=== PATIENT | female | born 1950 | race Caucasian/White ===

== ENCOUNTER 2020-03-26 07:47 | Outpatient (REF) | payer MEDICARE, SELFPAY ==
[2020-03-26 08:17] LABS: MANUAL DIFF FLAG NO
[2020-03-26 08:18] LABS: Basophils Percent Auto 0.8 % (0-2); Eosinophils Absolute Auto 0.2 X10*3/uL (0.0-0.4); Eosinophils Percent Auto 5.8 % (0-4); Hematocrit 38.4 % (37-47); Hemoglobin 12.6 g/dl (12.0-16.0); Imm Gran Abs Auto 0.01 X10*3/uL (0.00-0.03); Imm Gran Pct Auto 0.3 % (0.0-0.4); Lymphocytes Absolute Auto 1.5 X10*3/uL (1.2-4.9); Lymphocytes Percent Auto 39.9 % (20-40); Mean Corpuscular HGB Conc 32.8 g/dl (31.0-35.0); Mean Corpuscular Volume 88.3 fL (80-98); Mean Platelet Volume 10.3 fL (9.4-12.3); Monocytes Absolute Auto 0.3 X10*3/uL (0.1-1.2); Monocytes Percent Auto 8.7 % (2-11); Neutrophils Absolute Auto 1.7 X10*3/uL (2.0-8.3); Neutrophils Percent Auto 44.5 % (45-73); Platelet Count 228 X10*3/uL (160-400); Red Blood Count 4.35 X10*6/uL (4.20-5.50); Red Cell Distribution Width 12.1 % (11.0-16.0); White Blood Count 3.8 X10*3/uL (4.8-10.8)
[2020-03-26 08:54] LABS: Alanine Aminotransferase 28 U/L (0-31); Albumin Level 4.2 g/dL (3.5-5.0); Alkaline Phosphatase 54 U/L (39-117); Anion Gap 10 (12-20); Aspartate Amino Transferase 24 U/L (5-31); Bilirubin Total 0.2 mg/dL (0.0-1.0); Blood Urea Nitrogen 10 mg/dL (9-16); Calcium 8.6 mg/dL (8.4-10.2); Carbon Dioxide 28 mmol/L (22-29); Chloride 107 mmol/L (96-108); Cholesterol 174 mg/dL; Estimated Glomerular Filt Rate > 60; Glucose Random 84 mg/dL (60-115); HDL Cholesterol 60 mg/dL; LDL Cholesterol Calculated 101 mg/dl; Potassium 4.2 mmol/l (3.3-5.1); Sodium 141 mmol/L (135-145); Total Protein 6.1 g/dL (6.5-8.0); Triglycerides 68 mg/dL
[2020-03-26 09:35] LABS: Thyroid Stimulating Hormone 0.93 mIU/mL (0.32-4.0); Vitamin D 25-OH Total 53.2 ng/mL (>30)
[2020-03-26 10:16] LABS: T4 Thyroxine 8.1 ug/dL (4.5-12.0)
[2020-03-26 11:23] LABS: Folate > 20.0 ng/mL (> or = 4.0); Vitamin B12 1091 pg/mL (200-900)
== END 2020-03-26 07:48 | disposition home or self-care (01) ==
LOC: HO.LAB 07:47
PROVIDERS: Visit Provider Internal Medicine
DX: E78.00 Pure hypercholesterolemia, unspecified (principal); M81.0 Age-related osteoporosis without current pathological fracture; R31.9 Hematuria, unspecified; E03.9 Hypothyroidism, unspecified; N13.5 Crossing vessel and stricture of ureter without hydronephrosis
CPT/HCPCS: 36415; 80053; 80061; 82306; 82607; 82746; 84436; 84443; 85025

== ENCOUNTER 2020-07-16 08:10 | Outpatient (REF) | payer MEDICARE, SELFPAY ==
--- NOTE | ~2020-07-16 | MM_ITS ---
EXAMINATION: MM SCREENING DIGITAL BREAST TOMOSYNTHESIS, BILATERAL CLINICAL INFORMATION: Screening. Asymptomatic. The lifetime risk of breast cancer based on the Tyrer-Cuzick Model is 2%. COMPARISON: Mammography: 01/06/2020, 01/04/2018, 12/11/2016 TECHNIQUE: Digital breast tomosynthesis is performed in both the craniocaudal and mediolateral oblique views along with computer-aided detection (CAD). Synthesized 2D images are generated from the tomosynthesis. FINDINGS: There are scattered areas of fibroglandular density (ACR BI-RADS breast composition Category b). Breast tissue composition borders on predominantly fatty. Left MLO view has small asymmetric density mid upper quadrant without correlate on CC view, likely summation artifact or incompletely compressed tissue. Patient will be recalled to confirm artifact. Remainder of the breasts show no mass or architectural abnormality or abnormal calcifications. The axilla and skin contours are unremarkable. MM/MM tomosynthesis screening BI IMPRESSION: 1. Left: Asymmetric density upper quadrant on MLO view, suspect summation artifact or incompletely compressed glandular tissue. 2. Right: No mammographic evidence of malignancy. ASSESSMENT: BI-RADS 0: Incomplete - Need Additional Imaging Evaluation RECOMMENDATION: 1. Additional views of the left breast (3-D spot MLO, 3-D ML). 2. Targeted ultrasound if warranted after review of the additional views. 3. Radiology department staff will contact the patient for additional imaging. This patient's information was entered into a reminder system with a target due date for their next mammogram.
== END 2020-07-16 08:11 | disposition home or self-care (01) ==
LOC: HO.MAMMO 08:10
PROVIDERS: PCP Internal Medicine; Visit Provider Internal Medicine
DX: Z12.31 Encounter for screening mammogram for malignant neoplasm of breast (principal)
CPT/HCPCS: 77063; 77067

== ENCOUNTER 2020-08-15 12:57 | Outpatient (REF) | payer MEDICARE, SELFPAY ==
--- NOTE | ~2020-08-15 | MM_ITS ---
EXAMINATION: MM DIAGNOSTIC DIGITAL MAMMOGRAPHY, LEFT CLINICAL INFORMATION: Recall from screening for small asymmetric density upper left breast on MLO view, likely summation artifact or incompletely compressed glandular tissue. The lifetime risk of breast cancer based on the Tyrer-Cuzick Model is 2%. COMPARISON: Mammography: 07/16/2020, 01/05/2019 TECHNIQUE: Digital breast tomosynthesis is performed. 2D images are generated from the tomosynthesis. The following views are obtained: Spot MLO, standard ML. FINDINGS: There are scattered areas of fibroglandular density (ACR BI-RADS breast composition Category b). The additional views demonstrate no persistent asymmetric density. There is no mass or developing density or architectural abnormality. Results are discussed with the patient at time of visit. MM/MM tomosynthesis diagnostic LT IMPRESSION: Additional views show no persistent asymmetric density. ASSESSMENT: BI-RADS 1: Negative RECOMMENDATION: Routine annual mammography screening. This patient's information was entered into a reminder system with a target due date for their next mammogram.
== END 2020-08-15 12:58 | disposition home or self-care (01) ==
LOC: HO.MAMMO 12:57
PROVIDERS: PCP Internal Medicine; Visit Provider Internal Medicine
DX: R92.2 Inconclusive mammogram (principal)
CPT/HCPCS: 77061; 77065

== ENCOUNTER 2021-05-01 06:51 | Outpatient (REF) | payer MEDICARE, SELFPAY ==
--- NOTE | ~2021-05-01 | MM_ITS ---
EXAMINATION: BONE DENSITOMETRY CLINICAL INDICATION: Osteoporosis. COMPARISON: Previous BD dated 01/05/2019 and baseline BD dated 11/10/2014. TECHNIQUE: Using a Binary Thumb DXA System (software version: 13.1) manufactured by [employer], dual-energy x-ray absorptiometry was performed of the lumbar spine and left hip. The images are of good technical quality. Summary results are attached. FINDINGS: AP SPINE L1-L3 (excluding L4): The data of L1-L4 has been changed to exclude the L4 vertebral body, because degenerative sclerosis at this level may cause overestimation of lumbar spine density. Current: BMD 0.853 g/cm2, Z-score -1.0, T-score -2.6, osteoporosis, 5.8% increase from previous, 2.8% decrease from baseline (<5% change is not significant). Prior: BMD 0.806 g/cm2. Baseline: BMD 0.878 g/cm2. LEFT FEMUR, NECK: Current: BMD 0.643 g/cm2, Z-score -1.2, T-score -2.8, osteoporosis. Prior: BMD 0.708 g/cm2. Baseline: BMD 0.696 g/cm2. LEFT FEMUR, TOTAL: Current: BMD 0.755 g/cm2, Z-score -0.6, T-score -2.0, osteopenia, 2.8% decrease from previous, 6.2% increase from baseline (<5% change is not significant). Prior: BMD 0.777 g/cm2. Baseline: BMD 0.711 g/cm2. IDENTIFIED RISK FACTORS: Early menopause, history of fracture (adult), osteoporosis, right oophorectomy, secondary osteoporosis. HISTORY OF FRACTURE: Other. MEDICATIONS: Vitamin D. MM/XR DEXA axial skeleton IMPRESSION: 1. DIAGNOSIS: Osteoporosis based on the lowest T-score value of -2.8 in the femoral neck applying World Health Organization criteria. 2. 10-YEAR FRACTURE RISK PREDICTION, FRAX: Major osteoporotic fracture (clinical spine, forearm, hip or shoulder) 26.4%. Hip fracture 7.9%. 3. Treatment Recommendations: NOF guidelines recommend consideration for treatment in postmenopausal women and men age 50 and older presenting with the following: -A hip or vertebral (clinical or morphometric) fracture. -T-score less than or equal to -2.5 at the femoral neck or spine after appropriate evaluation to exclude secondary causes. -Low bone mass at the hip or spine and a 10-year fracture probability by FRAX of greater than or equal to 3% for hip fracture or greater than or equal to 20% for major osteoporotic fracture based on the [place] adapted WHO algorithm. 4. Other Recommendations: All treatment decisions require clinical judgment and consideration of individual patient factors, including patient preferences, comorbidities, previous drug use, risk factors not captured in the FRAX model (e.g. frailty, falls, vitamin D deficiency, increased bone turnover, interval significant decline in bone density) and possible under or overestimation of fracture risk by FRAX. Additional medical evaluation for secondary cause of low bone mineral density may be appropriate. FUTURE SCAN RECOMMENDATION: People with diagnosed cases of osteoporosis or at high risk for fracture should have regular bone mineral density tests. For patients eligible for Medicare, routine testing is allowed once every 2 years. The testing frequency can be increased to one year for patients who have rapidly progressing disease, those who are receiving or discontinuing medical therapy to restore bone mass, or have additional risk factors.
[2021-05-01 07:04] LABS: MANUAL DIFF FLAG NO
[2021-05-01 07:17] LABS: Basophils Percent Auto 0.3 % (0-2); Eosinophils Absolute Auto 0.3 X10*3/uL (0.0-0.4); Eosinophils Percent Auto 5.1 % (0-4); Imm Gran Abs Auto 0.01 X10*3/uL (0.00-0.03); Imm Gran Pct Auto 0.2 % (0.0-0.4); Lymphocytes Absolute Auto 3.1 X10*3/uL (1.2-4.9); Mean Corpuscular HGB Conc 32.5 g/dl (31.0-35.0); Mean Corpuscular Hemoglobin 29.2 pg (27.0-33.0); Mean Corpuscular Volume 89.9 fL (80.0-98.0); Mean Platelet Volume 10.4 fL (9.4-12.3); Monocytes Absolute Auto 0.5 X10*3/uL (0.1-1.2); Neutrophils Percent Auto 34.4 % (45-73); Platelet Count 218 X10*3/uL (160-400); Red Blood Count 4.45 X10*6/uL (4.20-5.50); Red Cell Distribution Width 12.4 % (11.0-16.0); White Blood Count 5.9 X10*3/uL (4.8-10.8)
[2021-05-01 07:48] LABS: Alanine Aminotransferase 22 U/L (0-31); Albumin Level 4.2 g/dL (3.5-5.0); Alkaline Phosphatase 58 U/L (39-117); Anion Gap 9 (12-20); Aspartate Amino Transferase 21 U/L (5-31); Bilirubin Total 0.6 mg/dL (0.0-1.0); Blood Urea Nitrogen 9 mg/dL (9-16); Calcium 9.8 mg/dL (8.4-10.2); Carbon Dioxide 28 mmol/L (22-29); Chloride 107 mmol/L (96-108); Cholesterol 179 mg/dL; Estimated Glomerular Filt Rate > 60; Glucose Random 94 mg/dL (60-115); HDL Cholesterol 54 mg/dL; LDL Cholesterol Calculated 109 mg/dl; Potassium 4.3 mmol/L (3.3-5.1); Sodium 140 mmol/L (135-145); Total Protein 6.5 g/dL (6.5-8.0); Triglycerides 84 mg/dL
[2021-05-01 08:11] LABS: Free T4 (Free Thyroxine) 1.14 ng/dL (0.71-1.85); Thyroid Stimulating Hormone 1.75 uIU/mL (0.32-4.0)
[2021-05-01 08:19] LABS: Folate > 20.0 ng/mL (> or = 4.0); Vitamin B12 820 pg/mL (200-900)
== END 2021-05-01 06:52 | disposition home or self-care (01) ==
LOC: HO.MAMMO 06:51
PROVIDERS: PCP Internal Medicine; Visit Provider Internal Medicine
DX: Z13.820 Encounter for screening for osteoporosis (principal); M81.0 Age-related osteoporosis without current pathological fracture; E03.9 Hypothyroidism, unspecified; E78.00 Pure hypercholesterolemia, unspecified; Z78.0 Asymptomatic menopausal state; Z90.722 Acquired absence of ovaries, bilateral; Z87.81 Personal history of (healed) traumatic fracture; Z79.899 Other long term (current) drug therapy
CPT/HCPCS: 36415; 77080; 80053; 80061; 82306; 82607; 82746; 84439; 84443; 85025

== ENCOUNTER 2022-02-05 07:37 | Outpatient (REF) | payer MEDICARE, SELFPAY ==
--- NOTE | ~2022-02-05 | MM_ITS ---
EXAMINATION: MM SCREENING DIGITAL BREAST TOMOSYNTHESIS, BILATERAL CLINICAL INFORMATION: Screening. Asymptomatic. The lifetime risk of breast cancer based on the Tyrer-Cuzick Model is 2%. COMPARISON: Mammography: 08/15/2020, 07/16/2020, 01/05/2019 TECHNIQUE: Digital breast tomosynthesis is performed in both the craniocaudal and mediolateral oblique views along with computer-aided detection (CAD). Synthesized 2D images are generated from the tomosynthesis. FINDINGS: There are scattered areas of fibroglandular density (ACR BI-RADS breast composition Category b). There are no significant masses, abnormal calcifications, or other abnormalities. Parenchymal pattern is similar to prior exams. The axilla and skin contours are unremarkable. No significant changes. MM/MM tomosynthesis screening BI IMPRESSION: No mammographic evidence of malignancy. ASSESSMENT: BI-RADS 1: Negative RECOMMENDATION: Routine annual mammography screening. This patient's information was entered into a reminder system with a target due date for their next mammogram.
== END 2022-02-05 07:38 | disposition home or self-care (01) ==
LOC: HO.MAMMO 07:37
PROVIDERS: PCP Internal Medicine; Visit Provider Internal Medicine
DX: Z12.31 Encounter for screening mammogram for malignant neoplasm of breast (principal)
CPT/HCPCS: 77063; 77067

== ENCOUNTER 2022-04-11 06:59 | Outpatient (REF) | payer MEDICARE, SELFPAY ==
[2022-04-11 07:03] LABS: MANUAL DIFF FLAG NO
[2022-04-11 07:41] LABS: Basophils Percent Auto 0.5 % (0-2); Eosinophils Absolute Auto 0.3 X10*3/uL (0.0-0.4); Eosinophils Percent Auto 3.8 % (0-4); Hematocrit 41.1 % (37.0-47.0); Hemoglobin 13.3 g/dl (12.0-16.0); Imm Gran Abs Auto 0.01 X10*3/uL (0.00-0.03); Imm Gran Pct Auto 0.1 % (0.0-0.4); Lymphocytes Absolute Auto 4.7 X10*3/uL (1.2-4.9); Lymphocytes Percent Auto 56.7 % (20-40); Mean Corpuscular HGB Conc 32.4 g/dl (31.0-35.0); Mean Corpuscular Hemoglobin 28.5 pg (27.0-33.0); Mean Corpuscular Volume 88.2 fL (80.0-98.0); Mean Platelet Volume 10.6 fL (9.4-12.3); Monocytes Absolute Auto 0.6 X10*3/uL (0.1-1.2); Monocytes Percent Auto 7.2 % (2-11); Neutrophils Absolute Auto 2.6 x10*3/uL (2.0-8.3); Neutrophils Percent Auto 31.7 % (45-73); Platelet Count 253 X10*3/uL (160-400); Red Blood Count 4.66 X10*6/uL (4.20-5.50); Red Cell Distribution Width 12.6 % (11.0-16.0); White Blood Count 8.3 X10*3/uL (4.8-10.8)
[2022-04-11 08:35] LABS: Free T4 (Free Thyroxine) 1.04 ng/dL (0.71-1.85); Thyroid Stimulating Hormone 2.15 uIU/mL (0.32-4.0)
[2022-04-11 09:06] LABS: Alanine Aminotransferase 18 U/L (0-31); Alkaline Phosphatase 58 U/L (39-117); Anion Gap 16 (12-20); Aspartate Amino Transferase 19 U/L (5-31); Bilirubin Total 0.3 mg/dL (0.0-1.0); Blood Urea Nitrogen 13 mg/dL (9-16); Calcium 9.6 mg/dL (8.4-10.2); Carbon Dioxide 26 mmol/L (22-29); Chloride 107 mmol/L (96-108); Cholesterol 184 mg/dL; Estimated Glomerular Filt Rate > 60; Glucose Random 93 mg/dL (60-115); HDL Cholesterol 54 mg/dL; LDL Cholesterol Calculated 117 mg/dl; Potassium 4.7 mmol/L (3.3-5.1); Sodium 144 mmol/L (135-145); Total Protein 6.4 g/dL (6.5-8.0); Triglycerides 68 mg/dL
[2022-04-11 11:42] LABS: Albumin Level 4.1 g/dL (3.5-5.0); Vitamin D 25-OH Total 75.4 ng/mL (>30)
[2022-04-11 12:01] LABS: Folate > 20.0 ng/mL (> or = 4.0); Vitamin B12 840 pg/mL (200-900)
== END 2022-04-11 07:00 | disposition home or self-care (01) ==
LOC: HO.LAB 06:59
PROVIDERS: PCP Internal Medicine; Visit Provider Internal Medicine
DX: E03.9 Hypothyroidism, unspecified (principal); E78.00 Pure hypercholesterolemia, unspecified
CPT/HCPCS: 36415; 80053; 80061; 82306; 82607; 82746; 84439; 84443; 85025

== ENCOUNTER 2022-10-09 11:37 | Outpatient (REF) | payer MEDICARE, SELFPAY | END 2022-10-09 11:38 | disposition home or self-care (01) | LOC: HO.LAB 11:37 | PROVIDERS: Visit Provider Nurse Practitioner Family | DX: R10.9 Unspecified abdominal pain (principal) | CPT/HCPCS: 87086 ==

== ENCOUNTER 2022-10-09 11:42 | Outpatient (REF) | payer MEDICARE, SELFPAY ==
--- NOTE | ~2022-10-09 | XR_ITS ---
EXAMINATION: XR ABDOMEN KUB CLINICAL INDICATION: Abdominal pain COMPARISON: Previous CT of the abdomen and pelvis March 2019 TECHNIQUE: AP view of the abdomen. FINDINGS: Moderate stool burden. No dilated loops of bowel. No free air. No suspicious calcifications. Post cholecystectomy. Degenerative changes of the spine. XR/XR KUB IMPRESSION: Moderate stool burden. Otherwise unremarkable exam.
== END 2022-10-09 11:43 | disposition home or self-care (01) ==
LOC: HO.XRAY 11:42
PROVIDERS: PCP Internal Medicine; Visit Provider Nurse Practitioner Family
DX: R10.9 Unspecified abdominal pain (principal)
CPT/HCPCS: 74018; 87086

== ENCOUNTER → 2022-11-11 10:13 | Outpatient (BNVA) | payer MEDICARE, SELFPAY | PROVIDERS: PCP Internal Medicine; Visit Provider Internal Medicine | DX: K59.00 Constipation, unspecified (principal) | CPT/HCPCS: 99202 ==

== ENCOUNTER 2023-03-02 08:29 | Outpatient (REF) | payer MEDICARE, SELFPAY | END 2023-03-02 08:30 | disposition home or self-care (01) | LOC: HO.MAMMO 08:29 | PROVIDERS: PCP Internal Medicine; Visit Provider Internal Medicine | DX: Z12.31 Encounter for screening mammogram for malignant neoplasm of breast (principal) | CPT/HCPCS: 77063; 77067 ==

== ENCOUNTER → 2023-03-02 08:45 | Outpatient (BNV) | payer MEDICARE, SELFPAY | PROVIDERS: PCP Internal Medicine; Visit Provider Radiology Diagnostic Radiology | DX: Z12.31 Encounter for screening mammogram for malignant neoplasm of breast (principal) | CPT/HCPCS: 77063; 77067 ==

== ENCOUNTER 2023-04-15 07:18 | Outpatient (REF) | payer MEDICARE, SELFPAY ==
[2023-04-15 07:29] LABS: MANUAL DIFF FLAG NO
[2023-04-15 07:34] LABS: Basophils Percent Auto 0.7 % (0-2); Eosinophils Absolute Auto 0.6 X10*3/uL (0.0-0.4); Eosinophils Percent Auto 10.3 % (0-4); Hematocrit 38.2 % (37.0-47.0); Hemoglobin 12.7 g/dl (12.0-16.0); Imm Gran Abs Auto 0.01 X10*3/uL (0.00-0.03); Imm Gran Pct Auto 0.2 % (0.0-0.4); Lymphocytes Absolute Auto 2.6 X10*3/uL (1.2-4.9); Lymphocytes Percent Auto 45.7 % (20-40); Mean Corpuscular HGB Conc 33.2 g/dl (31.0-35.0); Mean Corpuscular Hemoglobin 29.1 pg (27.0-33.0); Mean Corpuscular Volume 87.4 fL (80.0-98.0); Mean Platelet Volume 10.2 fL (9.4-12.3); Monocytes Absolute Auto 0.5 X10*3/uL (0.1-1.2); Monocytes Percent Auto 8.9 % (2-11); Neutrophils Absolute Auto 1.9 x10*3/uL (2.0-8.3); Neutrophils Percent Auto 34.2 % (45-73); Platelet Count 219 X10*3/uL (160-400); Red Blood Count 4.37 X10*6/uL (4.20-5.50); Red Cell Distribution Width 12.8 % (11.0-16.0); White Blood Count 5.6 X10*3/uL (4.8-10.8)
[2023-04-15 07:59] LABS: Alanine Aminotransferase 14 U/L (0-31); Albumin Level 4.2 g/dL (3.5-5.0); Alkaline Phosphatase 53 U/L (39-117); Anion Gap 9 (12-20); Aspartate Amino Transferase 21 U/L (5-31); Bilirubin Total 0.4 mg/dL (0.0-1.0); Blood Urea Nitrogen 8 mg/dL (9-16); Calcium 9.7 mg/dL (8.4-10.2); Carbon Dioxide 28 mmol/L (22-29); Chloride 108 mmol/L (96-108); Cholesterol 170 mg/dL (<200); Estimated Glomerular Filt Rate > 60; Glucose Random 89 mg/dL (60-115); HDL Cholesterol 60 mg/dL (>40); LDL Cholesterol Calculated 100 mg/dL (<100); Sodium 141 mmol/L (135-145); Total Protein 6.6 g/dL (6.5-8.0); Triglycerides 54 mg/dL (<150)
[2023-04-15 08:14] LABS: Free T4 (Free Thyroxine) 1.03 ng/dL (0.71-1.85); Thyroid Stimulating Hormone 1.21 uIU/mL (0.32-4.0); Vitamin D 25-OH Total 84.1 ng/mL (>30)
[2023-04-15 08:28] LABS: Folate 15.4 ng/mL (> or = 4.0); Vitamin B12 1523 pg/mL (200-900)
== END 2023-04-15 07:19 | disposition home or self-care (01) ==
LOC: HO.LAB 07:18
PROVIDERS: PCP Internal Medicine; Visit Provider Internal Medicine
DX: E03.9 Hypothyroidism, unspecified (principal); E78.00 Pure hypercholesterolemia, unspecified; M81.0 Age-related osteoporosis without current pathological fracture
CPT/HCPCS: 36415; 80053; 80061; 82306; 82607; 82746; 84439; 84443; 85025

== ENCOUNTER 2023-04-22 11:19 | Outpatient (AMB) | payer MEDICARE, SELFPAY ==
[2023-04-22 11:21] VITALS: BP 130/90; PULSE 83; O2SAT 92; BMI 23.0
--- NOTE | 2023-04-22 11:21 | A.OFFPC_ITS ---
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 Accompanied by: Self / Same As Patient Allergies Sulfa (Sulfonamide Antibiotics) Allergy (Unknown, Verified 04/22/23 11:30) Unknown Medication List - Last Reconciled 04/22/23 by Anselmo Booth MD cholecalciferol (vitamin D3) 125 mcg PO DAILY cyanocobalamin (vitamin B-12) 1,000 mcg PO DAILY folic acid 1 mg PO DAILY garlic 1,000 mg PO DAILY lactobacillus combination no.8 (Adult Probiotic) 3,000 mmu cells PO DAILY levothyroxine 75 mcg PO DAILY polyethylene glycol 3350 (Miralax) 17 grams PO BID simvastatin 5 mg PO BEDTIME wheat dextrin (Benefiber Sugar Free (dextrin)) 1 packet PO QDAY Tobacco use date assessed: 10/09/22 Fall risk assessment: No Falls in past year Last assessed Fall Risk: 04/22/23 Dental Screening Dental Screen Date: 04/22/23 Did you have a dental visit in the last 12 months?: Yes Did you have a dental problem in the last 6 months where you did not have access to dental care?: No Was dental information given to patient?: Patient has dentist HPI PE HPI Details 72-year-old female with a history of hyp ercholesterolemia hypothyroidism osteoporosis last seen in March 2022 patient comes in for physical exam. Patient's colonoscopy is up-to-date mammogram is up-to-date bone density is due for this year. Review of the notes October 2022 was seen by Gastroenterology for constipation [facility] Medical History Breast density Hypercholesterolemia Hypothyroid Osteoporosis Surgical History Hx of colonoscopy History of total abdominal hysterectomy History of removal of retained hardware Deficient knowledge of leg surgery S/P trigger finger release History of tonsillectomy and adenoidectomy History of appendectomy History of cholecystectomy Family History Father CVD (cardiovascular disease) Mother CVD (cardiovascular disease) Diabetes Hypertension Sister Myocardial infarction Diabetes Brother Hx of replacement of aortic valve Social History (Updated 04/22/23 @ 12:04 by Anselmo Booth MD) Housing: House Alcohol intake: current Alcohol intake frequency: holidays/special occasions only Comment: once a year 2 beers Patient Tobacco Use Status: Former Tobacco user Tobacco use type: Cigarette Years Smoked: 2003 e-Cigarette/Vaping Use: Never Used Second Hand Smoke Exposure: No Current occupational status: retired Cognitive needs: No Hearing needs: No Vision needs: Yes Questionnaire PHQ-9 Over the last 2 weeks, how often have you been bothered by any of the following problems? 1. Little interest or pleasure in doing things: not at all 2. Feeling down, depressed, or hopeless: not at all 3. Trouble falling or staying asleep, or sleeping too much: not at all 4. Feeling tired or having little energy: not at all 5. Poor appetite or overeating: not at all 6. Feeling bad about yourself - or that you are a failure or have let yourself or your family down: not at all 7. Trouble concentrating on things, such as reading the newspaper or watching television: not at all 8. Moving or speaking so slowly that other people could have noticed. Or the opposite - being so fidgety or restless that you have been moving around a lot more than usual: not at all 9. Thoughts that you would be better off or of hurting yourself in some way: not at all Total score: 0 [id number] - PHQ-9 Billing: Yes Source: Developed by Drs. Ramírez Mora, Cher Shaffer, Holden Jeffries and colleagues, with an educational diana from [employer]. Thrive Questionnaire Date Thrive assessed: 04/22/23 I am a: Patient What is your living situation today?: I have a steady place to live Within the past 12 months, did the food you bought not last and you didn't have the money to get more?: Never true Within the past 12 months, did you worry whether your food would run out before you got money to buy more?: Never true Do you have trouble paying for medicines?: No Do you have trouble getting transportation to medical appointments?: No Do you have trouble paying your heating and electricity bill?: No Do you have trouble taking care of your child, family member or friend?: No Do you have trouble with day-to-day activities such as bathing, preparing meals, shopping, managing finances, etc.?: No Are you currently unemployed and looking for a job?: No Are you interested in more education?: No Please select the resources that you would like help with: None Currently or been in a relationship where the following occur: no concerns reported JOSÉ MIGUEL-7 AMB Questionnaire JOSÉ MIGUEL-7 Date JOSÉ MIGUEL - 7 assessed: 04/22/23 Feeling nervous, anxious, or on edge: 0 = Not at all Not being able to stop or control worryin = Not at all Worrying too much about different things: 0 = Not at all Trouble relaxin = Not at all Being so restless that it is hard to sit still: 0 = Not at all Becoming easily annoyed or irritable: 0 = Not at all Feeling afraid as if something awful might happen: 0 = Not at all Total JOSÉ MIGUEL-7 score (0-4 normal; 5-9 mild; 10-14 moderate; 15-21 severe): 0 Source: Developed by Drs. Ramírez Mora, Cher Shaffer, Holden Jeffries and colleagues, with an educational diana from [employer]. JOSÉ MIGUEL-7 Assessment Billing JOSÉ MIGUEL-7 Assessment Tool: JOSÉ MIGUEL-7 Assessment 86337 Review of Systems Const Denies poor appetite and Denies weakness Eyes Denies no additional complaints ENT Reports Normal hearing present, Denies dizziness, Denies nasal congestion, Denies tinnitus and Denies sore throat Card Denies chest pain, Denies syncope, Denies rapid heart rate and Denies dyspnea Resp Denies cough and Denies dyspnea GI Denies change in stool character, Reports constipation, Denies diarrhea, Denies nausea and Denies vomiting Denies urinary frequency, Denies difficulty voiding and Denies dysuria Neuro Reports Normal hearing present, Denies confusion, Denies dizziness, Denies syncope and Denies weakness Psych Denies confusion Physical exam (Primary Care) Vital Signs: Last Vital Signs Pulse 83 04/22/23 11:21 BP 130/90 H 04/22/23 11:21 Pulse Ox 92 04/22/23 11:21 Oxygen Delivery Method Room Air 04/22/23 11:21 BMI result Body Mass Index 23.0 Tobacco/Smoking Status: Tobacco use Status Tobacco use date assessed 10/09/22 04/22/23 11:23 Patient Tobacco Use Status Former Tobacco user 04/22/23 11:23 Tobacco use type Cigarette 04/22/23 11:23 e-Cigarette/Vaping Use Never Used 04/22/23 11:23 PHQ-9: PHQ-9 Score PHQ-9: Total score 0 04/22/23 11:34 Thrive Assessment: Date of Thrive Assessment Date Thrive assessed 04/22/23 04/22/23 11:34 Currently or been in a relationship where the following occur: no concerns reported Const General: No confusion Orientation/consciousness: No confusion HENMT Head: Yes normocephalic Ears: external ears normal and TM's normal bilaterally Face and sinus: Yes normal facial exam Mouth: moist mucous membranes Throat: Yes tonsils normal Eyes Conjunctivae: conjunctivae normal Pupils: Equal, round and reactive pupils present and Pupil accommodation reflex normal Direct Ophthalmoscopy: normal light reflex Neck Neck: No lymphadenopathy Thyroid: Thyroid normal Chest Chest palpation & inspection: normal inspection of the chest Resp Effort & Inspection: normal respiratory effort and no audible wheezes Auscultation: clear to auscultation bilaterally, no crackles, no wheezes and brian ng sounds not diminished Cardio Rate: regular rate Rhythm: regular rhythm Peripheral pulses: radial pulses present and dorsalis pedis present GI Palpation (GI): no masses Auscultation: normal bowel sounds and normoactive bowel sounds Rectal Exam - Female: deferred Skin General skin exam: no rashes or lesions noted Rashes: no rashes Neuro General: No confusion Cranial nerves: Yes Equal, round and reactive pupils present and Yes Normal hearing present Cognition (Neuro): normal cognition Gait exam (Neuro): Normal gait present Motor exam (neuro): 5/5 motor strength present throughout Deep tendon reflexes (DTR's): Right brachioradialis reflex intensity grade: 2+, Left brachioradialis reflex intensity grade: 2+, Right patellar reflex intensity grade: 2+ and Left patellar reflex intensity grade: 2+ Extrem General: No edema Assessment and Plan Assessment & Plan (1) Annual physical exam: Code(s): Z00.00 - Encounter for general adult medical examination without abnormal findings (2) Hypercholesterolemia: Code(s): E78.00 - Pure hypercholesterolemia, unspecified Plan: Avoid fried foods, chicken skin, eggs, butter margarine, pastries and meat. Be it pork or beef they have a lot of cholesterol LDL goal of less than 130 and triglyceride of less than 150 patient on simvastatin 5 mg once a day (3) Hypothyroid: Code(s): E03.9 - Hypothyroidism, unspecified Plan: Continue with thyroid Medicaid (4) Osteoporosis: Code(s): M81.0 - Age-related osteoporosis without current pathological fracture Plan: Keep active calcium and vitamin-D (5) Constipation: Code(s): K59.00 - Constipation, unspecified Plan: Three rules for constipation 1. Diet need to have a high fiber diet less of meat 2. Increase oral fluids 3. Exercise (6) Blood pressure elevated without history of HTN: Code(s): R03.0 - Elevated blood-pressure reading, without diagnosis of hypertension Plan: patient gets the BP at home is normal (7) Epidermal cyst of face: Code(s): L72.0 - Epidermal cyst Orders: Orders Complete Blood Count Auto Diff 364 Days E78.00 - Pure hypercholesterolemia, unspecified Comprehensive Met. Panel 364 Days E78.00 - Pure hypercholesterolemia, unspecified Vitamin B12 and Folate 364 Days E78.00 - Pure hypercholesterolemia, unspecified Thyroid Stimulating Hormone 364 Days E78.00 - Pure hypercholesterolemia, unspecified Lipid Panel 364 Days E78.00 - Pure hypercholesterolemia, unspecified Free T4 (Free Thyroxine) 364 Days E78.00 - Pure hypercholesterolemia, unspecified Vitamin D 25-OH Total 364 Days E78.00 - Pure hypercholesterolemia, unspecified Referrals Dermatology Referral L72.0 - Epidermal cyst Medications: New triamcinolone acetonide (Nasacort Allergy) administer into each nostril 2 sprays intranasal DAILY 16.9 mL 3RF Coding Level of Care Code Est Pt Prev Care >65y(52592) Diagnoses Annual physical exam Z00.00 Hypercholesterolemia E78.00 Hypothyroid E03.9 Osteoporosis M81.0 Constipation K59.00 Blood pressure elevated without history of HTN R03.0 Epidermal cyst of face L72.0 Additional Codes JOSÉ MIGUEL-7 Assessment Billing - JOSÉ MIGUEL-7 Assessment Tool: JOSÉ MIGUEL-7 Assessment 80212 ([id number])
== END 2023-04-22 12:17 | disposition home or self-care (01) ==
PROVIDERS: Visit Provider Internal Medicine
DX: Z00.00 Encounter for general adult medical examination without abnormal findings (principal); E78.00 Pure hypercholesterolemia, unspecified; E03.9 Hypothyroidism, unspecified; M81.0 Age-related osteoporosis without current pathological fracture; K59.00 Constipation, unspecified; R03.0 Elevated blood-pressure reading, without diagnosis of hypertension; L72.0 Epidermal cyst
CPT/HCPCS: 99397

== ENCOUNTER 2023-05-04 08:39 | Outpatient (AMB) | payer MEDICARE, SELFPAY ==
[2023-05-04 09:33] VITALS: BP 140/70; PULSE 83; TEMP 36.2; O2SAT 97
--- NOTE | 2023-05-04 09:33 | MHC.OFFWIV ---
Intake Vital Signs 05/04/23 09:33 Height 5 ft 5 in BP 140/70 H Blood Pressure Location Lt brachial Position Sitting Pulse 83 Pulse Source Pulse Oximeter Temp 97.2 F Temp Source Temporal Artery Scan Pulse Oximetry (%) 97 Oxygen Delivery Method Room Air Intake Visit Reasons: EP, sty in left eye Intake Note: pt is here today for sty on lft eye started thursday-thursday Patient Tobacco Use Status: Former Tobacco user Allergies Sulfa (Sulfonamide Antibiotics) Allergy (Unknown, Verified 05/04/23 09:33) Unknown Do you need a note to return to daycare/school/sports/work: No HPI HPI Comments History of Present Illness Details 944 72-year-old female presents with uncomfortable lump to left inner eyelid this has been going on since Thursday, it is getting more and more uncomfortable. Reports there was pus and it popped this . Denies recent illness. Goes on frequent walks and ? maybe at one point had sand in her eye. Denies visual disturbances, headache, vision changes, dizziness, weakness, eye pain, eye discharge, chest pain, shortness of breath, nausea, vomiting, abdominal pain. Patient does not wear contact lenses. Denies blunt trauma. Physical exam with stye/hordeolum to the left inner lid. No purulence. No signs of abscess. Extraocular movements intact, pain-free. History and physical exam concerning for internal stye/hordeolum. Unlikely foreign body, corneal abrasion, wet macular degeneration, acute closed angle glaucoma, arterial or venous occlusion of the eye. No signs of orbital or periorbital cellulitis Advise warm compresses. Educated patient on diagnosis and treatment plan, answered all question, patient verbalizes understanding. At this time patient will be discharged home, advised to return with new or worsening symptoms. Educated on worrisome signs and symptoms and when to return. At this time I feel comfortable discharge home. [facility] Medical History Breast density Hypothyroid Osteoporosis Hypercholesterolemia Surgical History Hx of colonoscopy History of total abdominal hysterectomy History of removal of retained hardware Deficient knowledge of leg surgery S/P trigger finger release History of tonsillectomy and adenoidectomy History of appendectomy History of cholecystectomy Family History Father CVD (cardiovascular disease) Mother CVD (cardiovascular disease) Diabetes Hypertension Sister Myocardial infarction Diabetes Brother Hx of replacement of aortic valve Social History Housing: House Alcohol intake: current Alcohol intake frequency: holidays/special occasions only Comment: once a year 2 beers Patient Tobacco Use Status: Former Tobacco user Tobacco use type: Cigarette Years Smoked: 2003 e-Cigarette/Vaping Use: Never Used Second Hand Smoke Exposure: No Current occupational status: retired Cognitive needs: No Hearing needs: No Vision needs: Yes Review of Systems Const Details: Constitutional : No Weight loss, No Fever, No Chills, No Fatigue, No Malaise ENT/Mouth : No sore throat, No Rhinorrhea, + lump on eye Eyes: No Eye Pain, No Swelling, No Redness Cardiovascular : No Chest Pain, No SOB, No Dyspnea on Exertion, No Orthopnea, No Edema, No Palpitations Respiratory : No Cough, No Sputum, No Wheezing Gastrointestinal : No Nausea, No Vomiting, No Diarrhea, No Constipation, No abdominal Pain, No Hematochezia, No Melena Genitourinary : No Dysuria, No Urinary Frequency, No Hematuria, Musculoskeletal : No joint pain, No Myalgias, No Joint Swelling Skin : No Skin Lesions, No rash Neuro : No Weakness, No Numbness, No Dizziness, No Headache Psych : No Anxiety/Panic, No Depression All other systems reviewed and are negative All systems reviewed & are unremarkable except as noted in HPI and below Physical Exam Vital Signs: Last Vital Signs Temp 97.2 F 05/04/23 09:33 Pulse 83 05/04/23 09:33 BP 140/70 H 05/04/23 09:33 Pulse Ox 97 05/04/23 09:33 Oxygen Delivery Method Room Air 05/04/23 09:33 vsss Appearance: Alert.? Oriented X3.? No acute distress.? Head: Normocephalic, atraumatic, no step-offs or deformities Eyes: Pupils equal, round and reactive to light.? stye/hordeolum to the left inner lid. No purulence. No signs of abscess. Extraocular movements intact, pain-free. Neck: Normal inspection.? Neck supple.? CVS: Normal heart rate and rhythm.? Pulses normal.? Respiratory: No respiratory distress.? Breath sounds normal.? Abdomen: Soft and nontender.? Skin: Skin warm and dry.? Normal skin color.? Normal skin turgor.? Extremities: No lower extremity edema.? No calf ttp. 5/5 strength to bilateral upper and lower extremities Neuro: Oriented X 3.? No motor deficit.? No sensory deficit. CN 2-12 intact Assessment & Plan Assessment & Plan (1) Hordeolum: Code(s): H00.019 - Hordeolum externum unspecified eye, unspecified eyelid Plan Take your medications as prescribed. If you were prescribed antibiotics today, it is important that you take your medication to their entirety, do not skip any doses, do not finish them early. Follow-up with your primary care provider this week. Return to the emergency department with new or worsening symptoms. Such as fevers, chills, chest pain, shortness of breath, nausea, vomiting, dizziness, headache, vision changes, lethargy In case of emergency call 911 Apply warm compresses to affected area Medications: New erythromycin 0.5 inches ophthalmic (eye) BID 3.5 grams 0RF 7 days Coding Level of Care Code Est Pt Level 2 (43599) Diagnoses Hordeolum H00.019
== END 2023-05-04 10:02 | disposition home or self-care (01) ==
PROVIDERS: PCP Internal Medicine; Visit Provider Physician Assistant
DX: H00.019 Hordeolum externum unspecified eye, unspecified eyelid (principal)
CPT/HCPCS: 99212

== ENCOUNTER 2024-03-08 07:46 | Outpatient (REF) | payer MEDICARE, SELFPAY ==
--- NOTE | ~2024-03-08 | MM_ITS ---
EXAMINATION: MM SCREENING DIGITAL BREAST TOMOSYNTHESIS, BILATERAL CLINICAL INFORMATION: Screening. Asymptomatic. COMPARISON: Mammography: Comparison is made with available priors TECHNIQUE: Digital breast mammography with tomosynthesis is performed in both the craniocaudal and mediolateral oblique views along with computer-aided detection (CAD). FINDINGS: There are scattered areas of fibroglandular density (ACR BI-RADS breast composition Category b). There are no significant masses, abnormal calcifications, or other abnormalities. MM/MM tomosynthesis screening BI IMPRESSION: No mammographic evidence of malignancy. ASSESSMENT: BI-RADS BI-RADS 1 - Negative RECOMMENDATION: Routine annual mammography screening. 1 year F/U This examination should not preclude the clinical evaluation of a suspicious palpable abnormality. This patient's information was entered into a reminder system with a target due date for their next mammogram. Electronically signed by: Eleanor Jackson DO 03/18/2024 05:43 PM EDT
== END 2024-03-08 07:47 | disposition home or self-care (01) ==
LOC: HO.MAMMO 07:46
PROVIDERS: PCP Internal Medicine; Visit Provider Internal Medicine
DX: Z12.31 Encounter for screening mammogram for malignant neoplasm of breast (principal)
CPT/HCPCS: 77063; 77067

== ENCOUNTER → 2024-03-08 08:00 | Outpatient (BNV) | payer MEDICARE, SELFPAY | PROVIDERS: PCP Internal Medicine; Visit Provider Internal Medicine | DX: Z12.31 Encounter for screening mammogram for malignant neoplasm of breast (principal) | CPT/HCPCS: 77063; 77067 ==

== ENCOUNTER 2024-04-18 06:55 | Outpatient (REF) | payer MEDICARE, SELFPAY ==
[2024-04-18 07:19] LABS: MANUAL DIFF FLAG NO
[2024-04-18 07:35] LABS: Basophils Percent Auto 0.6 % (0-2); Eosinophils Absolute Auto 0.4 X10*3/uL (0.0-0.4); Eosinophils Percent Auto 7.4 % (0-4); Hematocrit 40.2 % (37.0-47.0); Hemoglobin 13.3 g/dl (12.0-16.0); Imm Gran Abs Auto 0.01 X10*3/uL (0.00-0.03); Imm Gran Pct Auto 0.2 % (0.0-0.4); Lymphocytes Absolute Auto 1.9 X10*3/uL (1.2-4.9); Lymphocytes Percent Auto 39.5 % (20-40); Mean Corpuscular HGB Conc 33.1 g/dl (31.0-35.0); Mean Corpuscular Hemoglobin 29.3 pg (27.0-33.0); Mean Corpuscular Volume 88.5 fL (80.0-98.0); Mean Platelet Volume 9.9 fL (9.4-12.3); Monocytes Absolute Auto 0.5 X10*3/uL (0.1-1.2); Monocytes Percent Auto 10.5 % (2-11); Neutrophils Percent Auto 41.8 % (45-73); Platelet Count 233 X10*3/uL (160-400); Red Blood Count 4.54 X10*6/uL (4.20-5.50); Red Cell Distribution Width 12.4 % (11.0-16.0); White Blood Count 4.9 X10*3/uL (4.8-10.8)
[2024-04-18 08:16] LABS: Alanine Aminotransferase 24 U/L (0-31); Albumin Level 4.1 g/dL (3.5-5.0); Alkaline Phosphatase 53 U/L (39-117); Anion Gap 13 (12-20); Aspartate Amino Transferase 28 U/L (5-31); Bilirubin Total 0.5 mg/dL (0.0-1.0); Blood Urea Nitrogen 11 mg/dL (9-16); Calcium 9.7 mg/dL (8.4-10.2); Carbon Dioxide 25 mmol/L (22-29); Chloride 106 mmol/L (96-108); Cholesterol 171 mg/dL (<200); Estimated Glomerular Filt Rate > 60; Glucose Random 85 mg/dL (60-115); HDL Cholesterol 56 mg/dL (>40); LDL Cholesterol Calculated 103 mg/dL (<100); Potassium 3.8 mmol/L (3.3-5.1); Sodium 140 mmol/L (135-145); Total Protein 6.3 g/dL (6.5-8.0); Triglycerides 60 mg/dL (<150)
[2024-04-18 08:33] LABS: Free T4 (Free Thyroxine) 1.03 ng/dL (0.71-1.85); Thyroid Stimulating Hormone 2.21 uIU/mL (0.32-4.0); Vitamin D 25-OH Total 82.8 ng/mL (>30)
[2024-04-18 08:44] LABS: Folate 16.4 ng/mL (> or = 4.0); Vitamin B12 868 pg/mL (200-900)
== END 2024-04-18 06:56 | disposition home or self-care (01) ==
LOC: HO.LAB 06:55
PROVIDERS: PCP Internal Medicine; Visit Provider Internal Medicine
DX: E78.00 Pure hypercholesterolemia, unspecified (principal)
CPT/HCPCS: 36415; 80053; 80061; 82306; 82607; 82746; 84439; 84443; 85025

== ENCOUNTER 2024-04-29 08:17 | Outpatient (AMB) | payer MEDICARE, SELFPAY ==
--- NOTE | 2024-04-29 08:20 | A.OFFPC_ITS ---
Vital Signs 04/29/24 08:22 Height 5 ft 5 in Weight 140 lb 2 oz BMI 23.3 BP 120/70 Blood Pressure Location Lt brachial Position Sitting Pulse 80 Pulse Source Pulse Oximeter Pulse Oximetry (%) 100 Oxygen Delivery Method Room Air Intake Visit Reasons: pe Intake Note: Patient is here today for a physical. Corporate Treasurer Required: No Production Engine Repairer: Not Required per policy Accompanied by: Self / Same As Patient Allergies Sulfa (Sulfonamide Antibiotics) Allergy (Unknown, Verified 04/29/24 08:22) Unknown Medication List - Last Reconciled 04/29/24 by Anselmo Booth MD cholecalciferol (vitamin D3) 125 mcg PO DAILY cyanocobalamin (vitamin B-12) 1,000 mcg PO DAILY folic acid 1 mg PO DAILY garlic 1,000 mg PO DAILY lactobacillus combination no.8 (Adult Probiotic) 3,000 mmu cells PO DAILY levothyroxine 75 mcg PO DAILY simvastatin 5 mg PO BEDTIME triamcinolone acetonide (Nasacort Allergy) 2 sprays intranasal DAILY wheat dextrin (Benefiber Sugar Free (dextrin)) 1 packet PO QDAY Tobacco use date assessed: 04/29/24 Fall risk assessment: No Falls in past year Last assessed Fall Risk: 04/29/24 Dental Screening Dental Screen Date: 04/29/24 Did you have a dental visit in the last 12 months?: No Did you have a dental problem in the last 6 months where you did not have access to dental care?: No Was dental information given to patient?: No HPI pe 2 HPI Details The patient is a 73-year-old female presenting for an annual physical exam. She has a history of hypercholesterolemia, currently managed with medication. Her cholesterol levels have been consistently monitored, and recent blood work showed a good control, with LDL at 104 mg/dL and HDL at 56 mg/dL. She is also diagnosed with hypothyroidism, managed with a consistent dosage of 75 mcg of thyroid medication. Her TSH levels have been stable and within normal limits according to the latest laboratory evaluations. The patient has osteoporosis and last underwent a bone density test in April 2021. She is following regular surveillance for this condition and is due for her next assessment. She experiences periodic allergic rhinitis, which is worse during certain seasons, notably markos. Blood work showed elevated eosinophils, which correlates with her allergic episodes. She regularly manages this with prescri bed antihistamines. In April 2023, she had an episode of a hordeolum in the left eye, which was managed conservatively and resolved without complications. Furthermore, she consulted podiatry due to pain in hammertoes, for which non-invasive management options were provided. Her diverticular disease is stable without recent flares. Her last colonoscopy was performed in 2014, and the next screening discussion was planned for the following year. - Last mammogram conducted February 2024, up to date. - Bone density testing last performed 2020, patient is due for follow- up. - Regular blood pressure monitoring, cur rently well-controlled. - Pneumonia vaccine administered in 2021 ; RSV vaccine received in recent months. - Patient does not consume alcohol and c eased smoking in 2003. - Focus on a diet rich in fruits and veg etables, low in meat, maintains active lifestyle. - Patient is retired. - Lives with her , who has recent ly experienced significant health issues contributing to household stress levels. - Former smoker, quit in 2003. - Abstains from alcohol except on rare s pecial occasions. - Engages in regular physical activity i ncluding walking. - Constitutional: Denies fever, weight c hange. - Eyes: Denies vision changes. - ENT: Denies hearing loss. - Cardiovascular: Denies chest pain, pal pitations. - Respiratory: Denies shortness of breat h. - Gastrointestinal: Denies nausea, vomit ing, changes in bowel habits. - Musculoskeletal: Denies joint pain out side a previously injured leg. - Neurological: Denies dizziness, loss o f consciousness. - Labs: - Eosinophils elevated at 7.4%. - Normal CBC and electrolytes. - Kidney and liver function tests within normal range. - Glucose and thyroid levels normal. - LDL 104 mg/dL, HDL 56 mg/dL. - Vitamin D normal. PFSH Medical History (Updated 04/29/24 @ 08:49 by Anselmo Booth MD) Breast density Hypothyroid Osteoporosis Hypercholesterolemia Surgical History (Updated 04/29/24 @ 08:49 by Anselmo Booth MD) Lipoma Hx of colonoscopy History of total abdominal hysterectomy History of removal of retained hardware Deficient knowledge of leg surgery S/P trigger finger release History of tonsillectomy and adenoidectomy History of appendectomy History of cholecystectomy Family History (Updated 04/29/24 @ 08:26 by CLARITZA Whaley) Father CVD (cardiovascular disease) Mother CVD (cardiovascular disease) Diabetes Hypertension Sister Myocardial infarction Diabetes Brother Hx of replacement of aortic valve Social History (Updated 04/29/24 @ 08:50 by Anselmo Booth MD) Housing: House Alcohol intake: current Alcohol intake frequency: holidays/special occasions only Comment: once a year 2 beers( no drink 04/2024) Patient Tobacco Use Status: Former Tobacco user Tobacco use type: Cigarette Years Smoked: 2003 e-Cigarette/Vaping Use: Never Used Second Hand Smoke Exposure: No service: No Current occupational status: retired Cognitive needs: No Hearing needs: No Vision needs: Yes Questionnaire PHQ-9 Over the last 2 weeks, how often have you been bothered by any of the following problems? 1. Little interest or pleasure in doing things: not at all 2. Feeling down, depressed, or hopeless: not at all 3. Trouble falling or staying asleep, or sleeping too much: not at all 4. Feeling tired or having little energy: not at all 5. Poor appetite or overeating: not at all 6. Feeling bad about yourself - or that you are a failure or have let yourself or your family down: not at all 7. Trouble concentrating on things, such as reading the newspaper or watching television: not at all 8. Moving or speaking so slowly that other people could have noticed. Or the opposite - being so fidgety or restless that you have been moving around a lot more than usual: not at all 9. Thoughts that you would be better off or of hurting yourself in some way: not at all Total score: 0 Depression Screening Interpretation: Negative Depression Screening Done: Yes Source: Developed by Drs. Ramírez Mora, Cher Shaffer, Holden Jeffries and colleagues, with an educational diana from [employer]. Thrive Questionnaire Date Thrive assessed: 04/29/24 I am a: Patient What is your living situation today?: I choose not to answer this question Within the past 12 months, did the food you bought not last and you didn't have the money to get more?: Never true Within the past 12 months, did you worry whether your food would run out before you got money to buy more?: Never true Do you have trouble paying for medicines?: No Do you have trouble getting transportation to medical appointments?: No Do you have trouble paying your heating and electricity bill?: No Do you have trouble taking care of your child, family member or friend?: No Do you have trouble with day-to-day activities such as bathing, preparing meals, shopping, managing finances, etc.?: No Are you currently unemployed and looking for a job?: I choose not to answer this question Are you interested in more education?: I choose not to answer this question Please select the resources that you would like help with: None Currently or been in a relationship where the following occur: I choose not to answer THRIVE Score: 0 AUDIT C Alcohol Use Questionnaire (AUDIT-C) 1. How often do you have a drink containing alcohol?: Never Total Score: 0 JOSÉ MIGUEL-7 AMB Questionnaire JOSÉ MIGUEL-7 Date JOSÉ MIGUEL - 7 assessed: 04/29/24 Feeling nervous, anxious, or on edge: 0 = Not at all Not being able to stop or control worryin = Not at all Worrying too much about different things: 0 = Not at all Trouble relaxin = Not at all Being so restless that it is hard to sit still: 0 = Not at all Becoming easily annoyed or irritable: 0 = Not at all Feeling afraid as if something awful might happen: 0 = Not at all Total JOSÉ MIGUEL-7 score (0-4 normal; 5-9 mild; 10-14 moderate; 15-21 severe): 0 Source: Developed by Drs. Ramírez Mora, Cher Shaffer, Holden Jeffries and colleagues, with an educational diana from [employer]. Review of Systems Const Denies poor appetite and Denies weakness Eyes Denies no additional complaints ENT Reports Normal hearing present, Denies dizziness, Denies nasal congestion, Denies tinnitus and Denies sore throat Card Denies chest pain, Denies syncope, Denies rapid heart rate and Denies dyspnea Resp Denies cough and Denies dyspnea GI Denies change in stool character, Reports constipation, Denies diarrhea, Denies nausea and Denies vomiting Denies urinary frequency, Denies difficulty voiding and Denies dysuria Neuro Reports Normal hearing present, Denies confusion, Denies dizziness, Denies syncope and Denies weakness Psych Denies confusion Physical exam (Primary Care) Vital Signs: Last Vital Signs Pulse 80 04/29/24 08:22 BP 120/70 04/29/24 08:22 Pulse Ox 100 04/29/24 08:22 Oxygen Delivery Method Room Air 04/29/24 08:22 BMI result Body Mass Index 23.3 Tobacco/Smoking Status: Tobacco use Status Tobacco use date assessed 04/29/24 04/29/24 08:28 Patient Tobacco Use Status Former Tobacco user 04/29/24 08:28 Tobacco use type Cigarette 04/29/24 08:28 e-Cigarette/Vaping Use Never Used 04/29/24 08:28 PHQ-9: PHQ-9 Score PHQ-9: Total score 0 04/29/24 08:28 Depression Screening Interpretation: Negative Thrive Assessment: Date of Thrive Assessment Date Thrive assessed 04/29/24 04/29/24 08:28 Currently or been in a relationship where the following occur: I choose not to answer Const General: No confusion Orientation/consciousness: No confusion HENMT Head: Yes normocephalic Ears: external ears normal and TM's normal bilaterally Face and sinus: Yes normal facial exam Mouth: moist mucous membranes Throat: Yes tonsils normal Eyes Conjunctivae: conjunctivae normal Pupils: Equal, round and reactive pupils present and Pupil accommodation reflex normal Direct Ophthalmoscopy: normal light reflex Neck Neck: No lymphadenopathy Thyroid: Thyroid normal Chest Chest palpation & inspection: normal inspection of the chest Resp Effort & Inspection: normal respiratory effort and no audible wheezes Auscultation: clear to auscultation bilaterally, no crackles, no wheezes and lung sounds not diminished Cardio Rate: regular rate Rhythm: regular rhythm Peripheral pulses: radial pulses present and dorsalis pedis present GI Palpation (GI): no masses Auscultation: normal bowel sounds and normoactive bowel sounds Rectal Exam - Female: deferred Skin General skin exam: no rashes or lesions noted Rashes: no rashes Neuro General: No confusion Cranial nerves: Yes Equal, round and reactive pupils present and Yes Normal hea ring present Cognition (Neuro): normal cognition Gait exam (Neuro): Normal gait present Motor exam (neuro): 5/5 motor strength present throughout Deep tendon reflexes (DTR's): Right brachioradialis reflex intensity grade: 2+, Left brachioradialis reflex intensity grade: 2+, Right patellar reflex intensity grade: 2+ and Left patellar reflex intensity grade: 2+ Extrem General: No edema Coding Level of Care Code Est Pt Prev Care >65y(27306) Diagnoses Annual physical exam Z00.00 Acquired hypothyroidism E03.9 Hypothyroidism type: acquired Hypercholesterolemia E78.00 Age related osteoporosis, unspecified pathological fracture presence M81.0 Osteoporosis type: age-related Presence of current pathological fracture: unspecified Assessment & Plan Assessment & Plan (1) Annual physical exam: Code(s): Z00.00 - Encounter for general adult medical examination without abnormal findings Category: Medical Plan: Patient is advised to eat healthy, keep well hydrated, keep active and have adequate sleep. (2) Hypothyroid: Code(s): E03.9 - Hypothyroidism, unspecified Category: Medical Qualifiers: Hypothyroidism type: acquired Qualified Code(s): E03.9 - Hypothyroidism, unspecified Plan: Continue with thyroid medication at 75 mcg once a day (3) Hypercholesterolemia: Code(s): E78.00 - Pure hypercholesterolemia, unspecified Category: Medical Plan: Avoid fried foods, chicken skin, eggs, butter margarine, pastries and meat. Be it pork or beef they have a lot of cholesterol LDL goal of less than 130 and triglyceride of less than 150 on simvastatin 5 mg once a day (4) Osteoporosis: Code(s): M81.0 - Age-related osteoporosis without current pathological fracture Category: Medical Qualifiers: Osteoporosis type: age-related Presence of current pathological fracture: unspecified Qualified Code(s): M81.0 - Age-related osteoporosis without current pathological fracture Plan: Discussed about repeating the bone density Plan - Continue current antihypertensive and lipid-lowering therapy; blood pressure and cholesterol levels are well-managed. - Maintain hypothyroidism management with current levothyroxine dosage, recheck TSH in upcoming labs. - Monitor osteoporosis status, schedule bone density analysis as per guidelines. - Address seasonal allergic rhinitis with antihistamines; continue monitoring eosinophil levels. - Patient advised to consider a follow-up colonoscopy in the next year's routine schedule. - Discuss magnesium levels and supplementation as potential aid for cramps/abdominal discomfort in future lab work During our discussion, I explained that her eosinophilia is consistent with seasonal allergies and recommended continuing with her antihistamine regimen. We discussed the importance of maintaining her osteoporosis monitoring schedule, as well as the implications of her cholesterol and thyroid results being stable. The need for a colonoscopy in 2023 was clarified, considering the timeline of past screenings. We discussed the current state of vaccinations, confirming her status for pneumonia and RSV vaccines. I provided reassurances about her stress levels given her 's health issues and encouraged ongoing self-care. Her allergy to sulfa was noted and discussed as part of her history, ensuring all prescribed medications avoid this allergen. - Continue prescribed medications for cholesterol and thyroid management. - Keep a regular log of blood pressure at home and report significant changes. - Use antihistamines as needed during allergy seasons. - Schedule a bone density test prior to the end of 2023. - Monitor any recurrence of eye symptoms such as swelling or tenderness. - Maintain an active lifestyle and balanced diet, focusing on fruits and vegetables. - Watch for any new symptoms or conditions and seek care as needed. Orders: Orders XR DEXA axial skeleton Today M81.0 - Age-related osteoporosis without current pathological fracture Comprehensive Met. Panel 1 Year E03.9 - Hypothyroidism, unspecified Vitamin D 25-OH Total 1 Year E03.9 - Hypothyroidism, unspecified Magnesium 1 Year E03.9 - Hypothyroidism, unspecified Complete Blood Count Auto Diff 1 Year E03.9 - Hypothyroidism, unspecified Free T4 (Free Thyroxine) 1 Year E03.9 - Hypothyroidism, unspecified Lipid Panel 1 Year E03.9 - Hypothyroidism, unspecified, E78.00 - Pure hypercholesterolemia, unspecified Thyroid Stimulating Hormone 1 Year E03.9 - Hypothyroidism, unspecified Vitamin B12 and Folate 1 Year E03.9 - Hypothyroidism, unspecified
[2024-04-29 08:22] VITALS: BP 120/70; PULSE 80; O2SAT 100; BMI 23.3
--- OUTSIDE RECORDS SUMMARY | 2024-05-04 05:25 | XMS_ITS ---
Author Organization [facility] c[facility] Hayden Address [address] [facility] [place] [address] Care Team Providers Care Rn Cardiology Name Role Phone Anselmo Booth Primary Care Provider Shanice Cohn Unavailable [phone] Allergies Allergen (clinical drug ingredient) Drug/Non Drug Allergy documented on EMR Reaction Allergy Type Onset Date Status sulfamethoxazole / trimethoprim Bactrim Unknown Drug Allergy Active REASON FOR VISIT Pcp-04/16, Painful Toe(s) Medications Medication SIG (Take, Route, Fr equency, Duration) Notes Start Date End Date Status Levothyroxine Sodium Active Simvastatin Active Social History Tobacco Use: Social History Observation Description Date Details (start date - stop date) Former Smoker NA - NA Tobacco Use/Smoking Question Answer Notes Are you a: former smoker Additional Findings: Tobacco Non-User Current no n-smoker Alcohol Screen Question Answer Notes Did you have a drink containing alcohol in the p ast year? Yes Points 0 Interpretation Negative Tobacco use other than smoking: Question Answer Notes Are you an other tobacco user? No Problems Problem Type SNOMED Code ICD Code Onset Dates Problem Status W/U Status Risk Notes Problem Acquired hammer toe of left foot (7520182387964281) Other hammer toe(s) (acquired), left foot (M20.42) Active confirmed Problem Localized, primary osteoarthritis of the ankle and/or foot (813064077) Arthritis of joint of lesser toe, left (M19.072) Active confirmed Vital Signs Height 5 ft 5 in in 01/08/2024 Weight 138 lbs 01/08/2024 BMI 22.96 kg/m2 01/08/2024 Blood pressure systolic 107 mm Hg 01/08/20 24 Blood pressure diastolic 60 mm Hg 024 Encounters Encounter Location Date Provider Diagnosis [facility] [address] [place] [address] 01/08/2024 Shanice Pickering Pain in left toe(s) M79.675 ; Other hammer toe(s) (acquired), left foot M20.42 and Dystrophic nail L60.3 Assessments Encounter Date Diagnosis (ICD Code) Assessment Notes Treatment Notes Treatment Clinical Notes Section Notes 01/08/2024 Pain in left toe(s) (ICD-10 - M79.675) 01/08/2024 Other hammer toe(s) (acquired), left foot (ICD-10 - M20.42) 01/08/2024 Dystrophic nail (ICD-10 - L60.3) Plan Of Treatment Next Appt Details Follow Up: prn, Reason: Progress Notes * Evette JAEGEROB:1950 (73 yo F)Acc No.[id number]:01/08/2024 Progress Notes Patient:?Savage Chel Provider:?Shanice Pickering DPM :1950???Age:73 Y???Sex:Female D ate:01/08/2024 [address] [facility] [facility] Pcp:Anselmo Booth Subjective: * Chief Complaints: * ???Pcp-04/16Painful Toe(s) * HPI: ???Toe pain:?Nature:?tenderness.?Location:?Left foot 2nd toe.?Course:?worse.?Aggravated by:?any pressure, shoes.?Treatments:?rest/alter normal daily activity, change in shoes change in shoes.? * ROS:?General/Constitutional:?Nausea?denies.?Vomiting?denies.?Hunger Thirst?denies.?Loss appetite?denies.?Chills?denies.?Fatigue?denies.?Fever?denies.?Night Sweats?denies.?Unexplained weight loss?denies.?Unexplained weight gain?denies.?HEENTM:?Dentures?denies.?Dizziness?denies.?Glasses/contacts?denies.?Retinopathy?de nies.?Blurred/double vision?denies.?TMJ?denies.?Discharge/drainage?denies.?Implants?denies.?Sore throat?denies.?Dental implants?denies.?Hard of hearing ?denies.?Difficulty chewing/swallowing/speaking?denies.?Nose bleeds?denies.?Sore mouth?denies.?Respiratory:?On Oxygen?denies.?Pneumonia/pleurisy?denies.?Bronchitis?denies.?Emphysema?denies.?C oughing?denies.?Cough blood?denies.?Shortness of breath?denies.?Wheezing?denies.?Cardiovascular:?Pacemaker?denies.?MVP?denies.?WPW?denies.?CHF?denies.?Heart attack?denies.?Septal defect?denies.?Rapid beat?denies.?Chest pain ?denies.?Atrial Fib.?denies.?Murmur/Palpitations?denies.?Gastrointestinal:?Hemorrhoids?denies.?Stomach/Abdominal pain?denies.?Dark blood stool?denies.?Irritable bowel ?denies.?Constipation?denies.?Diarrhea?denies.?Hematology:?Swelling?denies.?Clots?denies.?Varicose Veins?denies.?Bruising?denies.?Bleeding problem?denies.?Genitourinary:?Blood urine?denies.?Frequent/Painfu/urination/bladder control?denies.?Kidney stones?denies.?Infection (UTI)?denies.?Nephropathy?denies.?sex trans dis (STD)?denies.?Prostate?denies.?Musculoskeletal:?Hammertoes?denies.?Bunions?denies.?Back Pain?denies.?Muscle Cramps/ Resting?denies.?Muscle cramps / walking?denies.?Generalized aches and pains?denies.?Weakness?denies.?Integ.:?Dorman?denies.?Scars?denies.?Corns/calluses?denies.?Ingrown nails?admits.?Painful nails?denies.?Open Sores?denies.?Rashes?denies.?Neurologic:?Difficulty sleeping?denies.?Brain disorder?denies.?Numbness?denies.?Balance trouble?denies.?Confusion?denies.?Fainting/blackouts?denies.?Tingling?denies.?Tr emors?denies.? * Medical History:? * Surgical History:?hysterecto my 1981Gall bladder removal 1999Hand Surgery 2010Broken Leg 2014Lipoma removal 12/21/23 * Hospitalization/Major Diagno stic Procedure:?Denies Past Hospitalization * Family History:?Mother: dece ased, diagnosed with Diabetic - NIDDM.?Father: .? * Social History:?Tobacco Use:?Tobacco Use/Smoking?Are you a:?former smoker ?Additional Findings: Tobacco Non-User?Current non-smoker ?Tobacco use other than smoking?Are you an other tobacco user??No ???Drugs/Alcohol:?Drugs?Have you used drugs other than those for medical reasons in the past 12 months??No ?Alcohol Screen?Did you have a drink containing alcohol in the past year??Yes ?Points?0 ?Interpretation?Negative ???Miscellaneous:?Caffeine: yes, 1-2 cups per day. ?Children: yes, 2. ?Exercise: yes, walking, golf. ?Marital status: . * Medications:?TakingSimvastat in Levothyroxine Sodium Medication List reviewed and reconciled with the patientTaking Simvastatin Taking Levothyroxine Sodium Medication List reviewed and reconciled with the patient * Allergies:?Bactrimyes[Allerg ies Verified] Objective: * Vitals:?Ht: 5 ft 5 in, Wt:13 8, BMI:22.96, Shoe size: 8.5 Wide, BP:107/60 mm Hg, Ht-cm: 165.1 cm, Wt-k.6 kg. * Examination: ???General Examination: ?GENERAL APPEARANCE:?Reveals a pleasant, alert, well-nourished, well- developed, well hydrated individual, who demonstrates proper attention to hygiene/body habitus, and is in no acute distress, Pt serves as own?historian for office visit today.?ORIENTED:?person, place, and time.?Neurological: ?SENSORY:?Neurological exam reveals intact sensorium, pain sensation normal, vibration sensation intact, pinprick sensation is normal in the lower extremities, Pt denies, anesthesia, burning, paresthesia, tingling, B/L.?DEEP TENDON REFLEXES:?Achilles, 2/4, B/L.?Vascular: ?DP PULSES:?3/4, B/L.?PT PULSES:?3/4, B/L.?CAPILLARY FILL TIME:?immediate, all digits, B/L.?SKIN TEMPERTURE GRADIENT OF THE LOWER EXTERMITIES:?warm to cool, proximal to distal, B/L.?HAIR GROWTH/TEXTURE/ELASTICITY/TURGOR:?normal, B/L.?PIGMENTATION:?normal, B/L.?EDEMA:?absent, B/L.?Dermatologic: ?SKIN FINDINGS:?Skin exam reveals normal texture, elasticity, and turgor. There are no masses. The interspaces are clear.?Orthopedic: ?MUSCLE STRENGTH:?5/5 all groups in a symmetrical fashion , B/L.?DIGITAL DEFORMITIES:? Digital contracture, PIPJ, 2-5 B/L, reducible with WB, or to push-up test, no over, nor underlapping Digital contracture DIPJ reducible with WB or to push-up test.?FOOTWEAR:? shoe gear properties exacerbate patients foot/toe deformity.?Nails: ?NAILS are:?dystrophic 1-5 B/L.? Assessment: * Assessment: 1.?Pain in left toe(s) - M79 .675?2.?Other hammer toe(s) (acquired), left foot - M20.42 (Primary)?3.?Dystrophic nail - L60.3? Plan: * Treatment: * Procedure Codes:? * Preventive Medicine:? ??Counseling:?Discussion:?-03: Office or other outpatient visit for the evaluation and management of a new patient, which required a medically appropriate history and/or examination and LOW level of DECISION MAKING for: 1 STABLE ACUTE UNCOMPLICATED PROBLEM, 2 OR MORE MINOR PROBLEMS, OR 1 STABLE CHRONIC PROBLEM, THAT POSE(S) A LOW RISK FOR MORBIDITY/MORTALITY. The visit on the day of the encounter encompassed interpreting the data and educating the patient as to the nature of their condition, treatment options available according to their individual PMH, meds, allergies, and overall health/living conditions, as well as any potential risks or complications that may occur from a failure to adhere to, and participate in, the recommended course of therapy. The discussion included a complete verbal, and/or written explanation of the examination results, any x-rays taken, the proposed diagnosis, and outline of the treatment plan. A schedule for future care needs was also explained. The patient verbalized an understanding of the instructions at this time and agreed to be an active participant in their treatment. If the patient should think of any questions or concerns after the visit, I have encouraged the patient to call the office.?Digital Surgery:?Digital surgery was discussed with the patient, including the risks of surgery(below), vs not having surgery (persistent pain, deformity, risk for skin ulceration/infection, loss of toe), the potential surg complications, the anesthesia, and the usual post-op course. No guarentees were given. We discussed the potential procedure complications including, but not limited to: pain, swelling, bleeding, scarring, numbness, infection, delayed/non healing, floppy/unstable/shorthened toe, recurrence, failure of the procedure, overcorrection leading to plantarflexed/downward positioned toe, recurrence, need for further surgery, as well as the possibility for loss of the toe itself. We discussed the use of local anesthesia, and the usual post-op course for healing. No guarentees were given. The patient verbally indicated a full understanding of the above conversation, and any other of their questions were answered to their satisfaction. Alternatives to the procedure were also discussed, including conservative care. I also discussed the usual post-operative course and gave no guarantees regarding outcome.?Digital Treatment:?I explained to the patient the possible etiologies of Hammertoes, including genetics/foot type/shoegear/activity level/exercise routine and the risks/benefits of all the different treatment options for their pain including: No treatment at all, Rest, Ice, New/supportive/wider/deeper Shoegear, Digital Padding/Strapping/Taping/Bracing/Gel protective sleeves, Foot/Ankle AFO Bracing, Stretching exercises, Deep Tissue Massage, Arch support/shoe inserts with splay metatarsal padding, and Custom orthoses. I insisted that any digital devices be removed daily and not worn overnight for safety. The patient is to carefully examine the toes daily for any skin irritation while using any splinting or padding device. The advantages and disadvantages of each option were discussed and the patients questions re: shoegear, padding, custom vs prefabricated inserts, activity level, and consistency in home treatment regimens for optimal success were answered to their verbally confirmed satisfaction.?Shoe Gear Counseling:?The patient and I reviewed the types of shoes they should be wearing. My recommendation included obtaining a well-fitted shoe with a good supportive, non-foldable nor twistable sole, plenty of toe/room for the forefoot, and proper arch support. Based on todays examination, I recommended the patient look for new shoes, by having their feet professionally measured. We discussed that generally the best time of the day for a shoe fitting is the afternoon. Different shoes types and brands to best match the patients occupation and vocation were discussed. Specific brand selection will be up to the patient, their individual foot condition/deformities, and fit. The patient and I reviewed the standard new shoe break in period by wearing them for a few hours a day while checking for redness or sores as wear time is increased. The patient verbally confirmed to understanding the information discussed.? * Follow Up:?prn * Images: * Sign off status: Completed true * Provider:?Shanice Pickering DPM Date:? Generated for Shraddha huffman/Jaciel/Emmanuelitting on:?05/04/2024 05:25 AM EST History and Physical Notes * HPI (History of Present Illness) Category Sub-Category Detail Notes Category Not es Toe pain Nature: tenderness Location: Left foot 2nd toe Course: worse Aggravated by: any pressure, shoes Treatments: rest/alter normal da judy activity, change in shoes change in shoes Examination Category Sub-Category Detail Notes Category Not es Neurological SENSORY: Neurological exa m reveals intact sensorium, pain sensation normal, vibration sensation intact, pinprick sensation is normal in the lower extremities, Pt denies, anesthesia, burning, paresthesia, tingling, B/L DEEP TENDON REFLEXES: Achilles, 2/4, B/L Dermatologic SKIN FINDINGS: Skin exam reveal s normal texture, elasticity, and turgor. There are no masses. The interspaces are clear Orthopedic FOOTWEAR: shoe gear proper ties exacerbate patients foot/toe deformity DIGITAL DEFORMITIES: Digital contracture , PIPJ, 2-5 B/L, reducible with WB, or to push-up test, no over, nor underlapping Digital contracture DIPJ reducible with WB or to push-up test MUSCLE STRENGTH: 5/5 all groups in a symmetrical fashion , B/L General Examination GENERAL APPEARANCE: Reveals a pleasant, alert, well- nourished, well-developed, well hydrated individual, who demonstrates proper attention to hygiene/body habitus, and is in no acute distress, Pt serves as own historian for office visit today ORIENTED: person, place, and t ayaan Vascular DP PULSES(B): 3/4, B/L PT PULSES(B): 3/4, B/L CAPILLARY FILL TIME: immediate, all digi ts, B/L TEMPERTURE GRADIENT(C): warm to cool, pr oximal to distal, B/L TROPHIC CONDITION-TEXTURE/ELASTICITY/TURGOR/HAIR GROWTH(B): normal, B/L EDEMA(C): absent, B/L PIGMENTATION: normal, B/L Nails NAILS are: dystrophic 1-5 B/L
--- OUTSIDE RECORDS SUMMARY | 2024-05-04 05:25 | XMS_ITS | Patient Health Record ---
Author Organization [facility] Address [address] [facility] [place] [address] Care Team Providers Care Bushing And Broach Operator Name Role Phone LeobardoYasmindennise Primary Care Provider Shanice Cohn Unavailable [phone] Allergies Allergen (clinical drug ingredient) Drug/Non Drug Allergy documented on EMR Reaction Allergy Type Onset Date Status sulfamethoxazole / trimethoprim Bactrim Unknown Drug Allergy Active Reason For Referral No Information Medications Medication SIG (Take, Route, Fr equency, [...] Problem Acquired hammer toe of left foot (5682291429388624) Other hammer toe(s) (acquired), left foot (M20.42) Active confirmed Problem Localized, primary osteoarthritis of the ankle and/or foot (398937141) Arthritis of joint of lesser toe, left (M19.072) Active confirmed Vital Signs Blood pressure diastolic 60 mm Hg 01/08/2024 Height 5 ft 5 in in 01/08/2024 Blood pressure systolic 107 mm Hg 01/08/2024 Weight 138 lbs 01/08/2024 BMI 22.96 kg/m2 01/08/2024 [facility]counters [facility] [address] [facility]/08/2024 Shanice Pickering Pain in left toe(s) M79.675 ; Other hammer toe(s) (acquired), left foot M20.42 and Dystrophic nail L60.[address] [address] 10/21/2023 Shanice Quintanaa [facility] [address] 01/08/2024 Shanice Pickering Assessments Encounter Date Diagnosis (ICD Code) Assessment Notes Treatment Notes Treatment Clinical Notes Section Notes 01/08/2024 Pain in left toe(s) (ICD-10 - M79.675) 01/08/2024 Other hammer toe(s) (acquired), left foot (ICD-10 - M20.42) 01/08/2024 Dystrophic nail (ICD-10 - L60.3) Plan Of Treatment No Information Insurance Providers Payer Name Payer Address Payer Phone Subscriber Number Group Number Insured Name Patient Relationship to Insured Coverage Start Date Coverage End Date [employer] [address] [place] [address] [id number] Chel Wan Self - patient is the insured 3 Medical (General) History Medical History History ICD Code Broken bones Gall bladder problems thyroid Measles Mumps Chicken pox Surgical History Surgery Date(Month/Year) hysterectomy 1981 Gall bladder removal 1998 Hand Surgery 2009 Broken Leg 2014 Lipoma removal 12/21/23
--- OUTSIDE RECORDS SUMMARY | 2024-05-04 05:25 | XMS_ITS ---
Author Organization [facility] Address [address] [place] [address] Care Team Providers Care Automatic Head Sawyer Name Role Phone Anselmo Booth Primary Care Provider Shanice Cohn [phone] REASON FOR VISIT med toe crutch no charge Encounters Encounter Location Date Provider Diagnosis [facility] [address] [place] [address] 01/08/2024 Shanice Pickering Plan Of Treatment No Information Progress Notes * Evette JAEGEROB:1950 (73 yo F)Acc No.[id number]:01/08/2024 Patient:?Chel Jaeger :1950???Age:73 Y???Sex:Female Address:[address] [place] [address] * true * Date:? Generated for Printi nathanael/Jaciel/eTransmitting on:?05/04/2024 05:25 AM EST
--- OUTSIDE RECORDS SUMMARY | 2024-05-04 05:25 | XMS_ITS ---
Author Organization [facility] Address [address] [place] [address] Care Team Providers Care Supervisor Orchard Name Role Phone Anselmo Booth Primary Care Provider Shanice Cohn [phone] REASON FOR VISIT SETUP TECHNICIAN PPWK Entered Encounters Encounter Location Date Provider Diagnosis [facility] [address] [place] [address] 10/21/2023 Shanice Pickering Plan Of Treatment No Information Progress Notes * MIL, SusRochelleOB:1950 (73 yo F)Acc No.[id number]:10/21/2023 Patient:?Chel Wan :1950???Age:73 Y???Sex:Female [address] [address] * true * Date:? Generated for Printi ng/Jaciel/eTransmitting on:?05/04/2024 05:25 AM EST
== END 2024-04-29 09:04 | disposition home or self-care (01) ==
PROVIDERS: PCP Internal Medicine; Visit Provider Internal Medicine
DX: Z00.00 Encounter for general adult medical examination without abnormal findings (principal); E03.9 Hypothyroidism, unspecified; E78.00 Pure hypercholesterolemia, unspecified; M81.0 Age-related osteoporosis without current pathological fracture

== ENCOUNTER → 2024-04-29 08:17 | Outpatient (BNVA) | payer MEDICARE, SELFPAY | PROVIDERS: PCP Internal Medicine; Visit Provider Internal Medicine | DX: Z00.00 Encounter for general adult medical examination without abnormal findings (principal); E03.9 Hypothyroidism, unspecified; E78.00 Pure hypercholesterolemia, unspecified; M81.0 Age-related osteoporosis without current pathological fracture | CPT/HCPCS: 96127; 99397 ==

== ENCOUNTER 2024-12-27 08:42 | Outpatient (REF) | payer MEDICARE, SELFPAY ==
--- NOTE | ~2024-12-27 | XR_ITS ---
EXAMINATION: XR KNEE 3 VIEWS BILATERAL HISTORY: Bilateral knee pain COMPARISON: There are no prior studies available for comparison. FINDINGS: Six views of the bilateral knees are submitted. Osseous mineralization is normal. There is no fracture or dislocation. There is mild narrowing of the medial compartments of both knees. The soft tissues are unremarkable. There is no joint effusion. XR/XR Knee Yang 3V IMPRESSION: Mild narrowing of the medial compartments of both knees. Electronically signed by: Ramírez Bermudez MD 12/27/2024 02:20 PM EDT
--- OUTSIDE RECORDS SUMMARY | 2024-12-28 08:54 | XMS_ITS | Patient Health Record ---
Author Organization [facility] Amber Echavarrialey Address [address] [facility] [place] [address] Care Team Providers Care Bird Raiser Name Role Phone Leobardo Yasmindennise Primary Care Provider Shanice Cohn Unavailable [phone] Allergies Allergen (clinical drug ingredient) Drug/Non Drug [...] Problem Acquired hammer toe of left foot ([id number]) Other hammer toe(s) (acquired), left foot (M20.42) Active confirmed Problem Arthritis of joint of lesser toe, left (M19.072) Active confirmed Vital Signs Blood pressure diastolic 60 mm Hg 01/08/2024 Height 5 ft 5 in in 01/08/2024 Blood pressure systolic 107 mm Hg 01/08/2024 Weight 138 lbs 01/08/2024 BMI 22.96 kg/m2 01/08/2024 Encounters Encounter Location Date Provider Diagnosis [facility] [address] 01/08/2024 Shanice Pickering Pain in left toe(s) M79.675 ; Other hammer toe(s) (acquired), left foot M20.42 and Dystrophic nail L60.[address] [facility] [address] 01/08/2024 Shanice Pickering Assessments Encounter Date Diagnosis [...] Date [employer] [place] [employer]vantage [address] [facility] [address] [place] [address] [id number] Chel Wan Self - patient is the insured 3 Medical (General) History Medical History History ICD Code Broken bones Gall bladder problems thyroid Measles Mumps Chicken pox Surgical History Surgery Date(Month/Year) hysterectomy 1981 Gall bladder removal 1998 Hand Surgery 2009 Broken Leg 2014 Lipoma removal 12/21/23
== END 2024-12-27 08:43 | disposition home or self-care (01) ==
LOC: HO.HOSX 08:42
PROVIDERS: Visit Provider Orthopaedic Surgery
DX: S83.242A Other tear of medial meniscus, current injury, left knee, initial encounter (principal); M25.562 Pain in left knee; M25.561 Pain in right knee; X58.XXXA Exposure to other specified factors, initial encounter
CPT/HCPCS: 73562; 99202

== ENCOUNTER 2024-12-27 14:02 | Outpatient (AMB) | payer MEDICARE, SELFPAY ==
--- NOTE | 2024-12-27 14:12 | MHC.OFFVIS ---
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 The patient states that she underwent surgery for a left tibia fracture in 2013 when she fell off of a step ladder. Patient has subsequently had her hardware removed. She states that she reaggravated her left knee approximately 1 year ago. She twisted her knee and had acute onset of pain. Most of the pain is along the medial aspect of her knee. She has failed the last 6 weeks of conservative treatment which has included Tylenol, anti-inflammatory medicines and physical therapy exercises. She states that her left knee will give out several times per day. Allergies Sulfa (Sulfonamide Antibiotics) Allergy (Unknown, Verified 12/27/24 14:17) Unknown Medication List - Last Reviewed 12/27/24 by Brielle Guzman cholecalciferol (vitamin D3) 125 mcg PO DAILY cyanocobalamin (vitamin B-12) 1,000 mcg PO DAILY folic acid 1 mg PO DAILY garlic 1,000 mg PO DAILY lactobacillus combination no.8 (Adult Probiotic) 3,000 mmu cells PO DAILY levothyroxine 75 mcg PO DAILY simvastatin 5 mg PO BEDTIME triamcinolone acetonide (Nasacort Allergy) 2 sprays intranasal DAILY wheat dextrin (Benefiber Sugar Free (dextrin)) 1 packet PO QDAY [facility] Medical History (Updated 12/27/24 @ 14:35 by Matthew Lezama MD) Breast density Hypothyroid Osteoporosis Hypercholesterolemia Surgical History (Updated 04/29/24 @ 08:49 by Anselmo Booth MD) Lipoma Hx of colonoscopy History of total abdominal hysterectomy History of removal of retained hardware Deficient knowledge of leg surgery S/P trigger finger release History of tonsillectomy and adenoidectomy History of appendectomy History of cholecystectomy Family History (Updated 04/29/24 @ 08:26 by CLARITZA Whaley) Father CVD (cardiovascular disease) Mother CVD (cardiovascular disease) Diabetes Hypertension Sister Myocardial infarction Diabetes Brother Hx of replacement of aortic valve Social History (Updated 04/29/24 @ 08:50 by Anselmo Booth MD) Housing: House Alcohol intake: current Alcohol intake frequency: holidays/special occasions only Comment: once a year 2 beers( no drink 04/2024) Patient Tobacco Use Status: Former Tobacco user Tobacco use type: Cigarette Years Smoked: 2003 e-Cigarette/Vaping Use: Never Used Second Hand Smoke Exposure: No service: No Current occupational status: retired Cognitive needs: No Hearing needs: No Vision needs: Yes Physical Exam Vital Signs: BMI result Body Mass Index 23.1 Const Other: Well-nourished well-developed very friendly female awake alert and oriented x3 in no acute distress Extrem Other: Bilateral lower extremity examination shows good capillary refill, no skin lesions noted, normal sensation light touch Bilateral knee examination shows minimal effusions, mild crepitus with range of motion, tenderness along her medial joint lines, positive Amarjit's test, no instability Results Reviewed Results Reviewed: X-rays of the patient's bilateral knee show mild diffuse joint space narrowing, no acute bony abnormalities Assessment & Plan Assessment & Plan (1) Tear of medial meniscus of left knee: Code(s): S83.242A - Other tear of medial meniscus, current injury, left knee, initial encounter Category: Medical Plan Ms. German presents with progressively worsening bilateral knee pains and mechanical symptoms, left greater than right, most likely due to medial meniscus tearing. Thus, I will send the patient for an MRI of her left knee for further evaluation. I will see her back once the MRI is completed to discuss the findings and treatment options. Feel free to call me at any time should questions regarding her orthopedic management arise. Thank you very much for asking me to see this very friendly patient. I spent 20 minutes in reviewing the patient's records and imaging studies, seeing the patient and documenting in the medical record. Orders: Orders XR Knee Yang 3V Today M25.561 - Pain in right knee, M25.562 - Pain in left knee MR knee LT wo con 12/28/24 S83.242A - Other tear of medial meniscus, current injury, left knee, initial encounter Coding Level of Care Code New Pt Level 3 (28119) Complex EM visit Add On G2211 Diagnoses Tear of medial meniscus of left knee S83.242A
[2024-12-27 14:18] VITALS: BMI 23.1
--- OUTSIDE RECORDS SUMMARY | 2024-12-27 14:46 | XMS_ITS | Patient Health Record ---
Author Organization [facility] Amber Echavarrialey Address [address] [place] [address] Care Team Providers Care Director Human Services Name Role Phone Leobardo Yasmindennise Primary Care Provider Shanice Cohn Unavailable [phone] Allergies Allergen (clinical drug ingredient) Drug/Non Drug [...] Problem Acquired hammer toe of left foot (1255212839576 103) Other hammer toe(s) (acquired), left foot (M20.42) Active confirmed Problem Arthritis of joint of lesser toe, left (M19.072) Active confirmed Vital Signs Blood pressure diastolic 60 mm Hg 01/08/2024 Height 5 ft 5 in in 01/08/2024 Blood pressure systolic 107 mm Hg 01/08/2024 Weight 138 lbs 01/08/2024 BMI 22.96 kg/m2 01/08/2024 Encounters Encounter Location Date Provider Diagnosis [facility] [address] 01/08/2024 Shanice Pickering Pain in left toe(s) M79.675 ; Other hammer toe(s) (acquired), left foot M20.42 and Dystrophic nail L60.3 [facility] [address] 01/08/2024 Shanice Pickering Assessments Encounter Date Diagnosis [...] Date [employer] [place] [employer]vantage [address] [facility] [address] [place] [address] [id number] Chel Wan Self - patient is the insured 3 Medical (General) History Medical History History ICD Code Broken bones Gall bladder problems thyroid Measles Mumps Chicken pox Surgical History Surgery Date(Month/Year) hysterectomy 1981 Gall bladder removal 1998 Hand Surgery 2009 Broken Leg 2014 Lipoma removal 12/21/23
== END 2024-12-27 14:37 | disposition home or self-care (01) ==
LOC: HO.HOS 14:03
PROVIDERS: PCP Internal Medicine; Visit Provider Orthopaedic Surgery
DX: S83.242A Other tear of medial meniscus, current injury, left knee, initial encounter (principal)
CPT/HCPCS: 99203; G2211

== ENCOUNTER → 2024-12-27 14:05 | Outpatient (BNV) | payer MEDICARE, SELFPAY | PROVIDERS: Visit Provider Radiology Diagnostic Radiology | DX: M25.561 Pain in right knee (principal); M25.562 Pain in left knee | CPT/HCPCS: 73562 ==

== ENCOUNTER → 2025-01-10 07:10 | Outpatient (BNV) | payer MEDICARE, SELFPAY | PROVIDERS: PCP Internal Medicine; Visit Provider Radiology Diagnostic Radiology | DX: M23.322 Other meniscus derangements, posterior horn of medial meniscus, left knee (principal) | CPT/HCPCS: 73721 ==

== ENCOUNTER 2025-01-10 07:12 | Outpatient (REF) | payer MEDICARE, SELFPAY ==
--- NOTE | ~2025-01-10 | MR_ITS ---
EXAMINATION: MRI LEFT KNEE WITHOUT CONTRAST HISTORY: S83.242A - Other tear of medial meniscus, current injury, left knee, initial... COMPARISON: Relation is made with plain films of the left knee dated 12/27/2024. TECHNIQUE: Coronal T1 and fat-suppressed proton density, sagittal proton density and fat-suppressed proton density, and axial fat suppressed T2 weighted MR images of the left knee were obtained. FINDINGS: Bone marrow: There are postsurgical changes involving the lateral aspect of the proximal tibia with magnetic susceptibility artifact. There is a subchondral cyst involving the posterior aspect of the medial femoral condyle. Joint effusion: There is no joint effusion. Andrade's cyst: There is no Andrade's cyst. Articular cartilage: There is mild thinning of the cartilage of the medial compartment. Muscles/soft tissues: The visualized muscles demonstrate normal signal intensity. Anterior cruciate ligament: Intact Posterior cruciate ligament: Intact Medial collateral ligament: Intact Lateral collateral ligament: Intact Medial meniscus: There is a horizontally oriented linear focus of increased T2 signal intensity within the body and posterior horn of the medial meniscus, consistent with a tear. Lateral meniscus: Intact Flexor mechanism: The popliteus, gastrocnemius, and hamstring tendons are intact. Quadriceps tendon: Intact Patellar tendon: Intact Patellar retinacula: Intact MR/MR knee LT wo con IMPRESSION: 1. Mild osteoarthritis of the medial compartment. 2. Horizontal tear of the body/posterior horn of the medial meniscus. Electronically signed by: Ramírez Bermudez MD 01/10/2025 07:59 AM EDT
--- OUTSIDE RECORDS SUMMARY | 2025-01-10 07:16 | XMS_ITS | Patient Health Record ---
Author Organization [facility] Address [address] [facility] [place] [address] Care Team Providers Care Cellophane Bag Machine Operator Name Role Phone Anselmo Booth Primary Care Provider Shanice Cohn Unavailable [phone] Allergies Allergen (clinical drug ingredient) Drug/Non Drug [...] Problem Acquired hammer toe of left foot ([id number] 103) Other hammer toe(s) (acquired), left foot (M20.42) Active confirmed Problem Arthritis of joint of lesser toe, left (M19.072) Active confirmed Plan Of Treatment No Information Insurance Providers Payer Name Payer Address Payer Phone Subscriber Number Group Number Insured Name Patient Relationship to Insured Coverage Start Date Coverage End Date [employer] [place] Medicare [employer]vantage [address] [place] [address] [id number] Chel Wan Self - patient is the insured 3 Medical (General) History Medical History History ICD Code Broken bones Gall bladder problems thyroid Measles Mumps Chicken pox Surgical History Surgery Date(Month/Year) hysterectomy 1980 Gall bladder removal 1998 Hand Surgery 2009 Broken Leg 2014 Lipoma removal 12/21/23
== END 2025-01-10 07:13 | disposition home or self-care (01) ==
LOC: HO.MRI 07:12
PROVIDERS: PCP Internal Medicine; Visit Provider Orthopaedic Surgery
DX: S83.242A Other tear of medial meniscus, current injury, left knee, initial encounter (principal)
CPT/HCPCS: 73721

== ENCOUNTER 2025-02-14 14:46 | Outpatient (AMB) | payer MEDICARE, SELFPAY ==
--- NOTE | 2025-02-14 14:56 | A.OFFVIS_ITS ---
Vital Signs 02/14/25 14:58 Height 5 ft 5 in Weight 137 lb BMI 22.8 Intake Visit Reasons: OV-LT knee MRI review,01/10/25. Intake Note: Chel is a 74 year old female who presents with complaints of intermittent left knee pain and giving way. The patient states that she underwent surgery for a left tibia fracture in 2013 when she fell off of a step ladder. Patient has stern bsequently had her hardware removed. She states that she reaggravated her left knee approximately 1 year ago. She twisted her knee and had acute onset of pain. Most of the pain is along the medial aspect of her knee. She has failed the last 6 weeks of conservative treatment which has included Tylenol, anti- inflammatory medicines and physical therapy exercises. Allergies Sulfa (Sulfonamide Antibiotics) Allergy (Unknown, Verified 02/14/25 14:58) Unknown Medication List - Last Reconciled 02/14/25 by Matthew Lezama MD cholecalciferol (vitamin D3) 125 mcg PO DAILY cyanocobalamin (vitamin B-12) 1,000 mcg PO DAILY folic acid 1 mg PO DAILY garlic 1,000 mg PO DAILY ibuprofen 800 mg PO Q8H PRN lactobacillus combination no.8 (Adult Probiotic) 3,000 mmu cells PO DAILY levothyroxine 75 mcg PO DAILY simvastatin 5 mg PO BEDTIME triamcinolone acetonide (Nasacort Allergy) 2 sprays intranasal DAILY wheat dextrin (Benefiber Sugar Free (dextrin)) 1 packet PO QDAY PFSH Medical History (Updated 12/27/24 @ 14:35 by Matthew Lezama MD) Breast density Hypothyroid Osteoporosis Hypercholesterolemia Surgical History (Updated 04/29/24 @ 08:49 by Anselmo Booth MD) Lipoma Hx of colonoscopy History of total abdominal hysterectomy History of removal of retained hardware Deficient knowledge of leg surgery S/P trigger finger release History of tonsillectomy and adenoidectomy History of appendectomy History of cholecystectomy Family History (Updated 04/29/24 @ 08:26 by CLARITZA Whaley) Father CVD (cardiovascular disease) Mother CVD (cardiovascular disease) Diabetes Hypertension Sister Myocardial infarction Diabetes Brother Hx of replacement of aortic valve Social History (Updated 04/29/24 @ 08:50 by Anselmo Booth MD) Housing: House Alcohol intake: current Alcohol intake frequency: holidays/special occasions only Comment: once a year 2 beers( no drink 04/2024) Patient Tobacco Use Status: Former Tobacco user Tobacco use type: Cigarette Years Smoked: 2003 e-Cigarette/Vaping Use: Never Used Second Hand Smoke Exposure: No service: No Current occupational status: retired Cognitive needs: No Hearing needs: No Vision needs: Yes Physical Exam Vital Signs: BMI result Body Mass Index 22.8 Const Other: Well-nourished well-developed very friendly female awake alert and oriented x3 in no acute distress Extrem Other: Left knee examination shows a minimal effusion, mild crepitus with range of motion, tenderness along her medial joint line, positive Amarjit's test, no instability Results Reviewed Results Reviewed: MRI of the patient's left knee shows mild diffuse degenerative changes as well as a tear of the medial meniscus Assessment & Plan Assessment & Plan (1) Tear of medial meniscus of left knee: Code(s): S83.242A - Other tear of medial meniscus, current injury, left knee, initial encounter Category: Medical Plan Ms. German presents with intermittent left knee discomfort and mechanical symptoms due to a medial meniscus tear. I had a lengthy discussion with the patient regarding the treatment options. At this point the patient's symptoms are tolerable to her. She will continue with her activity modifications. She will follow up with me on an as-needed basis should her symptoms worsen in any way. Feel free to call me at any time should questions regarding her orthopedic management arise. I spent 21 minutes in reviewing the patient's records and imaging studies, seeing the patient and documenting in the medical record. Coding Level of Care Code Est Pt Level 3 (15579) Complex EM visit Add On G2211 Diagnoses Tear of medial meniscus of left knee S83.242A
[2025-02-14 14:58] VITALS: BMI 22.8
--- OUTSIDE RECORDS SUMMARY | 2025-02-14 17:54 | XMS_ITS | Patient Health Record ---
Author Organization [facility] Amber caitlyn [place] Address [address] [facility] [place] [address] Care Team Providers Care Truck Leasing Manager Name Role Phone LeobardoYasmindennise Primary Care Provider Shanice Cohn Unavailable [phone] Allergies Allergen (clinical drug ingredient) Drug/Non Drug [...] Problem Acquired hammer toe of left foot ([id number]) Other hammer toe(s) (acquired), left foot (M20.42) Active confirmed Problem Localized, primary osteoarthritis of the ankle and/or foot (880628089) Arthritis of joint of lesser toe, left (M19.072) Active confirmed Plan Of Treatment No Information Insurance Providers Payer Name Payer Address Payer Phone Subscriber Number Group Number Insured Name Patient Relationship to Insured Coverage Start Date Coverage End Date [employer] [place] [employer]vantage [address] [facility] [place] [address] [phone] [id number] Chel Wan Self - patient is the insured 3 Medical (General) History Medical History History ICD Code Broken bones Gall bladder problems thyroid Measles Mumps Chicken pox Surgical History Surgery Date(Month/Year) hysterectomy 1980 Gall bladder removal 1998 Hand Surgery 2009 Broken Leg 2014 Lipoma removal 12/21/23
== END 2025-02-14 15:16 | disposition home or self-care (01) ==
LOC: HO.HOS 14:46
PROVIDERS: PCP Internal Medicine; Visit Provider Orthopaedic Surgery
DX: S83.242A Other tear of medial meniscus, current injury, left knee, initial encounter (principal)
CPT/HCPCS: 99213; G2211

== ENCOUNTER → 2025-02-14 14:46 | Outpatient (BNVA) | payer MEDICARE, SELFPAY | PROVIDERS: PCP Internal Medicine; Visit Provider Orthopaedic Surgery | DX: S83.242D Other tear of medial meniscus, current injury, left knee, subsequent encounter (principal) | CPT/HCPCS: 99212 ==

== ENCOUNTER 2025-03-14 07:53 | Outpatient (REF) | payer MEDICARE, SELFPAY ==
--- NOTE | ~2025-03-14 | MM_ITS ---
EXAMINATION: DXA BONE DENSITY AXIAL HISTORY: M81.0 - Age-related osteoporosis without current pathological fracture TECHNIQUE: [place] Dual energy absorptiometry (DEXA) of the lumbar spine, total left hip, and femoral neck was performed. COMPARISON: Comparison is made with the prior examination dated 05/01/2021. FINDINGS: The bone mineral density of the lumbar spine is 0.779 g/cm2, corresponding to a T-score of -3.3, and a Z-score of -1.6. This is indicative of osteoporosis. This represents a BMD change of -8.7% compared to the prior exam. This is statistically significant. The bone mineral density of the left total hip is 0.686 g/cm2, corresponding to a T-score of -2.6, and a Z-score of -1.0. This is indicative of osteoporosis. This represents a BMD change of -9.1% compared to the prior exam. This is statistically significant. The bone mineral density of the left femoral neck is 0.638 g/cm2, corresponding to a T-score of -2.9, and a Z-score of -1.1. This is indicative of osteoporosis. This represents a BMD change of -0.8% compared to the prior exam. FRACTURE RISK: The FRAX index suggests a ten year probability of major osteoporotic fracture of 28.5%, and of hip fracture 9.7%. MM/XR DEXA axial skeleton IMPRESSION: Based on bone mineral density, and according to World Health Organization (WHO) criteria, the diagnosis is consistent with osteoporosis. Statistically, 68% of repeat scans fall within 1 SD (+/- 0.010 g/cm2 for AP spine L1-L4) and 1 SD (+/- 0.012 g/cm2 for femur total) FRAX is a trademark of the [employer]'s [place] for Metabolic Bone Disease, a World Health Organization (WHO) Collaborating Center. Electronically signed by: Ramírez Bermudez MD 03/14/2025 08:54 AM EDT
--- NOTE | ~2025-03-14 | MM_ITS ---
EXAMINATION: MM SCREENING DIGITAL BREAST TOMOSYNTHESIS, BILATERAL CLINICAL INFORMATION: Screening. Asymptomatic. COMPARISON: Mammography: Comparison is made with available priors TECHNIQUE: Digital breast mammography with tomosynthesis is performed in both the craniocaudal and mediolateral oblique views along with computer-aided detection (CAD). FINDINGS: There are scattered areas of fibroglandular density. There are no significant masses, abnormal calcifications, or other abnormalities. MM/MM tomosynthesis screening BI IMPRESSION: No mammographic evidence of malignancy. ASSESSMENT: BI-RADS Category 1: Negative RECOMMENDATION: Routine annual mammography screening. 1 year F/U This examination should not preclude the clinical evaluation of a suspicious palpable abnormality. This patient's information was entered into a reminder system with a target due date for their next mammogram. Electronically signed by: Eleanor Jackson DO 03/14/2025 03:52 PM EDT
--- OUTSIDE RECORDS SUMMARY | 2025-03-14 07:57 | XMS_ITS | Patient Health Record ---
Author Organization [facility] Amber caitlyn [place] Address [address] [facility] [place] [address] Care Team Providers Care Pouring Crane Operator Name Role Phone LeobardoYasmindennise Primary Care Provider Shanice Cohn Unavailable [phone] Allergies Allergen (clinical drug ingredient) Drug/Non Drug [...] Problem Acquired hammer toe of left foot ([id number]) Other hammer toe(s) (acquired), left foot (M20.42) Active confirmed Problem Localized, primary osteoarthritis of the ankle and/or foot (971348182) Arthritis of joint of lesser toe, left (M19.072) Active confirmed Plan Of Treatment No Information Insurance Providers Payer Name Payer Address Payer Phone Subscriber Number Group Number Insured Name Patient Relationship to Insured Coverage Start Date Coverage End Date [employer] [place] [employer]vantage [address] [facility] [place] [address] [id number] Chel Wan Self - patient is the insured 3 Medical (General) History Medical History History ICD Code Broken bones Gall bladder problems thyroid Measles Mumps Chicken pox Surgical History Surgery Date(Month/Year) hysterectomy 1980 Gall bladder removal 1998 Hand Surgery 2009 Broken Leg 2014 Lipoma removal 12/21/23
== END 2025-03-14 07:54 | disposition home or self-care (01) ==
LOC: HO.MAMMO 07:53
PROVIDERS: PCP Internal Medicine; Visit Provider Internal Medicine
DX: Z12.31 Encounter for screening mammogram for malignant neoplasm of breast (principal); M81.0 Age-related osteoporosis without current pathological fracture
CPT/HCPCS: 77063; 77067; 77080

== ENCOUNTER → 2025-03-14 08:45 | Outpatient (BNV) | payer MEDICARE, SELFPAY | PROVIDERS: PCP Internal Medicine; Visit Provider Radiology Diagnostic Radiology | DX: Z12.31 Encounter for screening mammogram for malignant neoplasm of breast (principal); E28.39 Other primary ovarian failure | CPT/HCPCS: 77063; 77067; 77080 ==

== ENCOUNTER 2025-03-30 06:32 | Outpatient (REF) | payer MEDICARE, SELFPAY ==
--- OUTSIDE RECORDS SUMMARY | 2025-03-30 06:36 | XMS_ITS | Patient Health Record ---
Author Organization [facility] Amber caitlyn [place] Address [address] [facility] [place] [address] Care Team Providers Care Nailhead Operator Name Role Phone LeobardoYasmindennise Primary Care Provider Shanice Cohn Unavailable [phone] Allergies Allergen (clinical drug ingredient) Drug/Non Drug [...] Problem Acquired hammer toe of left foot ([id number]) Other hammer toe(s) (acquired), left foot (M20.42) Active confirmed Problem Localized, primary osteoarthritis of the ankle and/or foot ([id number]) Arthritis of joint of lesser toe, left (M19.072) Active confirmed Plan Of Treatment No Information Insurance Providers Payer Name Payer Address Payer Phone Subscriber Number Group Number Insured Name Patient Relationship to Insured Coverage Start Date Coverage End Date [employer] [place] [employer]vantage [address] [place] [address] [id number] Chel Wan Self - patient is the insured 3 Medical (General) History Medical History History ICD Code Broken bones Gall bladder problems thyroid Measles Mumps Chicken pox Surgical History Surgery Date(Month/Year) hysterectomy 1980 Gall bladder removal 1998 Hand Surgery 2009 Broken Leg 2014 Lipoma removal 12/21/23
[2025-03-30 06:42] LABS: MANUAL DIFF FLAG NO
[2025-03-30 07:21] LABS: Hematocrit 39.4 % (37.0-47.0); Hemoglobin 13.0 g/dl (12.0-16.0); Imm Gran Abs Auto 0.01 X10*3/uL (0.00-0.03); Imm Gran Pct Auto 0.2 % (0.0-0.4); Lymphocytes Absolute Auto 2.1 X10*3/uL (1.2-4.9); Mean Corpuscular HGB Conc 33.0 g/dl (31.0-35.0); Mean Corpuscular Hemoglobin 29.2 pg (27.0-33.0); Mean Corpuscular Volume 88.5 fL (80.0-98.0); NRBC Abs Auto 0.000 X10*3/uL (0.0-0.012); NRBC Pct Auto 0.0 /100WBC (0.0-0.2); Platelet Count 233 X10*3/uL (160-400); Red Blood Count 4.45 X10*6/uL (4.20-5.50); White Blood Count 4.8 X10*3/uL (4.8-10.8)
[2025-03-30 08:01] LABS: Alanine Aminotransferase 20 U/L (0-31); Albumin Level 4.4 g/dL (3.5-5.0); Alkaline Phosphatase 47 U/L (39-117); Anion Gap 11 (12-20); Aspartate Amino Transferase 25 U/L (5-31); Blood Urea Nitrogen 14 mg/dL (9-16); Calcium 9.2 mg/dL (8.4-10.2); Carbon Dioxide 27 mmol/L (22-29); Chloride 108 mmol/L (96-108); Cholesterol 189 mg/dL (<200); Estimated Glomerular Filt Rate > 60; HDL Cholesterol 62 mg/dL (>40); Magnesium 2.4 mg/dL (1.6-2.6); Potassium 4.1 mmol/L (3.3-5.1); Sodium 142 mmol/L (135-145); Total Protein 6.3 g/dL (6.5-8.0); Triglycerides 79 mg/dL (<150)
[2025-03-30 08:17] LABS: Free T4 (Free Thyroxine) 1.09 ng/dL (0.71-1.85); Thyroid Stimulating Hormone 1.95 uIU/mL (0.32-4.0)
[2025-03-30 09:13] LABS: Folate 17.3 ng/mL (> or = 4.0); Vitamin B12 1221 pg/mL (200-900)
== END 2025-03-30 06:33 | disposition home or self-care (01) ==
LOC: HO.LAB 06:32
PROVIDERS: PCP Internal Medicine; Visit Provider Internal Medicine
DX: E03.9 Hypothyroidism, unspecified (principal); E78.00 Pure hypercholesterolemia, unspecified
CPT/HCPCS: 36415; 80053; 80061; 82306; 82607; 82746; 83735; 84439; 84443; 85025

== ENCOUNTER 2025-05-11 08:51 | Outpatient (AMB) | payer MEDICARE, SELFPAY ==
--- NOTE | 2025-05-11 08:59 | A.OFFPC_ITS ---
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: No Accompanied by: Self / Same As Patient Allergies Sulfa (Sulfonamide Antibiotics) Allergy (Unknown, Verified 05/11/25 08:59) Unknown Medication List - Last Reconciled 05/11/25 by Anselmo Booth MD cholecalciferol (vitamin D3) 125 mcg PO DAILY cyanocobalamin (vitamin B-12) 1,000 mcg PO DAILY folic acid 1 mg PO DAILY garlic 1,000 mg PO DAILY ibuprofen 800 mg PO Q8H PRN lactobacillus combination no.8 (Adult Probiotic) 3,000 mmu cells PO DAILY levothyroxine 75 mcg PO DAILY magnesium glycinate 200 mg (2 x 100 mg magnesium) PO .QD simvastatin 5 mg PO BEDTIME triamcinolone acetonide (Nasacort Allergy) 2 sprays intranasal DAILY wheat dextrin (Benefiber Sugar Free (dextrin)) 1 packet PO QDAY Tobacco use date assessed: 05/11/25 Fall risk assessment: No Falls in past year Last assessed Fall Risk: 05/11/25 Dental Screening Dental Screen Date: 05/11/25 HPI HPI Comments History of Present Illness Details History of Present Illness The patient is a 74 year old female presenting for a physical exam. Her last visit was in April 2024. She has a history of hypothyroidism, hypercholesterolemia, and osteoporosis. Her last bone density scan in February 2021 showed osteoporosis, with an 8% decrease in the spine and a 9% decrease in the hip. She takes calcium and vitamin D but is not interested in other medications for osteoporosis due to concerns about side effects. There is no family history of unusual fractures. For hypercholesterolemia, which is familial, she takes simvastatin 5 mg. She continues her thyroid medication for hypothyroidism. She has a history of a left medial meniscus tear, diagnosed by MRI, and was seen by orthopedics in January. Her symptoms are currently tolerable. Regarding health maintenance, her last colonoscopy was in 2014 and is due this year, and her mammogram is up to date. Past blood work from April 18 showed a normal blood count, electrolytes, renal, glucose, and liver function, with a slightly elevated vitamin B12 level. Her recently from pancreatic cancer after a prior history of prostate cancer and a massive stroke. She has no new surgeries since her last visit. Health Maintenance The patient is due for a colonoscopy this year. She will follow up in one year, or sooner if any problems arise. Social History - Alcohol Use: Reports she may have one drink per year. - Tobacco Use: Denies ever smoking. - Pets: Owns two cats. - Living Situation: Lives in a [employer] re-controlled house. - Recent Events: Patient's thania nowak . - Activity: Reports she plans to be more active. Results - Labs from April 18 2024: - CBC: Normal. - Chemistries: Electrolytes, renal funct ion, glucose, and liver function were normal. - Thyroid hormones: Normal. - Vitamin B12: Slightly high. - Eosinophils: Elevated at 6 (normal 0-4 ). - Imaging: - Bone Density Scan (February 2021): Show ed osteoporosis with an 8% decrease in spine density and a 9% decrease in hip density. - MRI Left Knee: Revealed a tear of the medial meniscus. REPLACED BY [facility] Medical History (Updated 03/28/25 @ 17:20 by Anselmo Booth MD) Breast density Hypothyroid Osteoporosis Hypercholesterolemia Surgical History (Updated 04/29/24 @ 08:49 by Anselmo Booth MD) Lipoma Hx of colonoscopy History of total abdominal hysterectomy History of removal of retained hardware Deficient knowledge of leg surgery S/P trigger finger release History of tonsillectomy and adenoidectomy History of appendectomy History of cholecystectomy Family History (Updated 04/29/24 @ 08:26 by CLARITZA Whaley) Father CVD (cardiovascular disease) Mother CVD (cardiovascular disease) Diabetes Hypertension Sister Myocardial infarction Diabetes Brother Hx of replacement of aortic valve Social History (Updated 04/29/24 @ 08:50 by Anselmo Booth MD) Housing: House Alcohol intake: current Alcohol intake frequency: holidays/special occasions only Comment: once a year 2 beers( no drink 04/2024) Patient Tobacco Use Status: Former Tobacco user Tobacco use type: Cigarette Years Smoked: 2003 e-Cigarette/Vaping Use: Never Used Second Hand Smoke Exposure: No service: No Current occupational status: retired Cognitive needs: No Hearing needs: No Vision needs: Yes Questionnaire PHQ-9 Over the last 2 weeks, how often have you been bothered by any of the following problems? 1. Little interest or pleasure in doing things: not at all 2. Feeling down, depressed, or hopeless: not at all 3. Trouble falling or staying asleep, or sleeping too much: not at all 4. Feeling tired or having little energy: not at all 5. Poor appetite or overeating: not at all 6. Feeling bad about yourself - or that you are a failure or have let yourself or your family down: not at all 7. Trouble concentrating on things, such as reading the newspaper or watching television: not at all 8. Moving or speaking so slowly that other people could have noticed. Or the opposite - being so fidgety or restless that you have been moving around a lot more than usual: not at all 9. Thoughts that you would be better off or of hurting yourself in some way: not at all Total score: 0 Depression Screening Interpretation: Negative Depression Screening Done: Yes Source: Developed by Drs. Ramírez Mora, Cher Shaffer, Holden Jeffries and colleagues, with an educational diana from [employer]. Thrive Questionnaire Date Thrive assessed: 05/11/25 I am a: Patient What is your living situation today?: I have a steady place to live Within the past 12 months, did the food you bought not last and you didn't have the money to get more?: Never true Within the past 12 months, did you worry whether your food would run out before you got money to buy more?: Never true Do you have trouble paying for medicines?: No Do you have trouble getting transportation to medical appointments?: No Do you have trouble paying your heating and electricity bill?: No Do you have trouble taking care of your child, family member or friend?: No Do you have trouble with day-to-day activities such as bathing, preparing meals, shopping, managing finances, etc.?: No Are you currently unemployed and looking for a job?: No Are you interested in more education?: No Please select the resources that you would like help with: None Currently or been in a relationship where the following occur: No concerns reported THRIVE Score: 0 AUDIT C Alcohol Use Questionnaire (AUDIT-C) 1. How often do you have a drink containing alcohol?: Never 3. How often do you have six or more drinks on one occasion?: Never Total Score: 0 JOSÉ MIGUEL-7 AMB Questionnaire JOSÉ MIGUEL-7 Date JOSÉ MIGUEL - 7 assessed: 05/11/25 Feeling nervous, anxious, or on edge: 1 = Several days Not being able to stop or control worryin = Not at all Worrying too much about different things: 1 = Several days Trouble relaxin = More than half the days Being so restless that it is hard to sit still: 1 = Several days Becoming easily annoyed or irritable: 0 = Not at all Feeling afraid as if something awful might happen: 0 = Not at all Total JOSÉ MIGUEL-7 score (0-4 normal; 5-9 mild; 10-14 moderate; 15-21 severe): 5 Source: Developed by Drs. Ramírez Mora, Cher Shaffer, Holden Jeffries and colleagues, with an educational diana from [employer]. Review of Systems Narrative Review of Systems - Constitutional: Denies fever, dizziness, or syncope. - Allergic/Immunologic: Reports seasonal allergies, for which she uses a nasal spray. - HEENT: Reports hearing is good. - Cardiovascular: Denies chest pain or discomfort. - Respiratory: Denies dyspnea or cough. - Gastrointestinal: Denies dysphagia, nausea, vomiting, or heartburn. - Reports normal bowel movements. - Genitourinary: Denies dysuria. - Reports occasional nocturia. Const Denies poor appetite and Denies weakness Eyes Denies no additional complaints ENT Reports Normal hearing present, Denies dizziness, Denies nasal congestion, Denies tinnitus and Denies sore throat Card Denies chest pain, Denies syncope, Denies rapid heart rate and Denies dyspnea Resp Denies cough and Denies dyspnea GI Denies change in stool character, Reports constipation, Denies diarrhea, Denies nausea and Denies vomiting Denies urinary frequency, Denies difficulty voiding and Denies dysuria Neuro Reports Normal hearing present, Denies confusion, Denies dizziness, Denies syncope and Denies weakness Psych Denies confusion Physical exam (Primary Care) Vital Signs: Last Vital Signs Temp 97.7 F 05/11/25 09:01 Pulse 66 05/11/25 09:01 Resp 18 05/11/25 09:01 BP 146/74 H 05/11/25 09:01 Pulse Ox 93 05/11/25 09:01 Oxygen Delivery Method Room Air 05/11/25 09:01 BMI result Body Mass Index 22.5 Tobacco/Smoking Status: Tobacco use Status Tobacco use date assessed 05/11/25 05/11/25 09:08 Patient Tobacco Use Status Former Tobacco user 05/11/25 08:59 Tobacco use type Cigarette 05/11/25 08:59 e-Cigarette/Vaping Use Never Used 05/11/25 08:59 PHQ-9: PHQ-9 Score PHQ-9: Total score 0 05/11/25 09:31 Depression Screening Interpretation: Negative Thrive Assessment: Date of Thrive Assessment Date Thrive assessed 05/11/25 05/11/25 09:08 Currently or been in a relationship where the following occur: No concerns reported Narrative Physical Exam General: Cooperative, healthy appearing, comfortable, no acute distress and well developed Orientation: Patient oriented x3 Limitations: No limitations Head: Normal to inspection Ears: Hearing grossly normal bilaterally Nose: Normal external nose present Face and sinus: Normal facial exam Eyes: Appearance normal, both eyes and all related structures Neck: Normal visual inspection and Yes full ROM Respiratory: Normal respiratory effort and able to speak in complete sentences. Clear to auscultation bilaterally Cardiovascular: Regular rate and rhythm. Normal S1 and S2 GI: Normal to inspection. Soft to palpation and nontender Skin: No rashes or lesions noted Neuro: Patient oriented x3 Extremities: Normal to inspection Const General: No confusion Orientation/consciousness: No confusion HENMT Head: Yes normocephalic Ears: external ears normal and TM's normal bilaterally Face and sinus: Yes normal facial exam Mouth: moist mucous membranes Throat: Yes tonsils normal Eyes Conjunctivae: conjunctivae normal Pupils: Equal, round and reactive pupils present and Pupil accommodation reflex normal Direct Ophthalmoscopy: normal light reflex Neck Neck: No lymphadenopathy Thyroid: Thyroid normal Chest Chest palpation & inspection: normal inspection of the chest Resp Effort & Inspection: normal respiratory effort and no audible wheezes Auscultation: clear to auscultation bilaterally, no crackles, no wheezes and lung sounds not diminished Cardio Rate: regular rate Rhythm: regular rhythm Peripheral pulses: radial pulses present and dorsalis pedis present GI Palpation (GI): no masses Auscultation: normal bowel sounds and normoactive bowel sounds Rectal Exam - Female: deferred Skin General skin exam: no rashes or lesions noted Rashes: no rashes Neuro General: No confusion Cranial nerves: Yes Equal, round and reactive pupils present and Yes Normal hearing present Cognition (Neuro): normal cognition Gait exam (Neuro): Normal gait present Motor exam (neuro): 5/5 motor strength present throughout Deep tendon reflexes (DTR's): Right brachioradialis reflex intensity grade: 2+, Left brachioradialis reflex intensity grade: 2+, Right patellar reflex intensity grade: 2+ and Left patellar reflex intensity grade: 2+ Extrem General: No edema Coding Level of Care Code Est Pt Prev Care >65y(81081) Diagnoses Annual physical exam Z00.00 Tear of medial meniscus of left knee S83.242A Age related osteoporosis, unspecified pathological fracture presence M81.0 Osteoporosis type: age-related Presence of current pathological fracture: unspecified Acquired hypothyroidism E03.9 Hypothyroidism type: acquired Hypercholesterolemia E78.00 Colon cancer screening Z12.11 Assessment & Plan Assessment & Plan (1) Annual physical exam: Code(s): Z00.00 - Encounter for general adult medical examination without abnormal findings Category: Medical Plan: Patient is advised to eat healthy, keep well hydrated, keep active and have adequate sleep. (2) Tear of medial meniscus of left knee: Code(s): S83.242A - Other tear of medial meniscus, current injury, left knee, initial encounter Category: Medical Plan: Patient has seen Orthopedics has had an MRI, symptoms presently tolerable (3) Osteoporosis: Code(s): M81.0 - Age-related osteoporosis without current pathological fracture Category: Medical Qualifiers: Osteoporosis type: age-related Presence of current pathological fracture: unspecified Qualified Code(s): M81.0 - Age-related osteoporosis without current pathological fracture Plan: Discussed about calcium and vitamin-D and other treatment for osteoporosis (4) Hypothyroid: Code(s): E03.9 - Hypothyroidism, unspecified Category: Medical Qualifiers: Hypothyroidism type: acquired Qualified Code(s): E03.9 - Hypothyroidism, unspecified Plan: Continue with thyroid medication (5) Hypercholesterolemia: Code(s): E78.00 - Pure hypercholesterolemia, unspecified Category: Medical Plan: Avoid fried foods, chicken skin, eggs, butter margarine, pastries and meat. Be it pork or beef they have a lot of cholesterol LDL goal of less than 130 and triglyceride of less than 150 (6) Colon cancer screening: Code(s): Z12.11 - Encounter for screening for malignant neoplasm of colon Category: Medical Plan Plan Patient was informed and verbally consented to the use of an ambient scribe for clinic note documentation during this visit. 1. Osteoporosis The patient's bone density shows worsening osteoporosis with an 8% decrease in the spine and a 9% decrease in the hip. She will continue taking calcium and vitamin D. Medications to strengthen bone were discussed, but she declined due to concerns about side effects. She was advised to maintain activity and be careful on ice to prevent falls. 2. Hypercholesterolemia The patient will continue simvastatin 5 mg. Her cholesterol numbers are currently good on the medication. Lipid goals were discussed. 3. Hypothyroidism The patient will continue her current thyroid medication, as her thyroid hormone levels are normal. 4. Allergies The patient continues to use a nasal spray for allergies. Her lab work shows elevated eosinophils, consistent with active allergies. It was suggested that she could also take Claritin if desired. 5. Tear Of Medial Meniscus Of Left Knee The patient's left knee pain from a meniscal tear is currently tolerable. She will continue to follow up with orthopedics as needed. Discussion Notes I reviewed the patient's medical history, including her hypothyroidism, hypercholesterolemia, and osteoporosis. I explained that her bone density from February 2021 has worsened, with an 8% decrease in the spine and a 9% decrease in the hip, indicating her bones are getting weaker. We discussed treatment options for osteoporosis, including medications, but she expressed a preference to avoid them due to concerns about side effects. I advised her to continue with calcium, vitamin D, and physical activity, and to be cautious on ice to prevent falls. We reviewed her recent lab work, noting that while mostly normal, her eosinophil count was elevated, which is consistent with active allergies. I suggested she could take Claritin if her symptoms persist. I informed her that she is due for a colonoscopy this year. I recommended she follow up in one year or sooner if any issues arise. Patient Instructions - Continue taking your thyroid medication and simvastatin for your cholesterol as prescribed. - Continue taking calcium and vitamin D supplements for your bone health. - You can take an [id number] medication like Claritin for your allergy symptoms if needed. - Please schedule a colonoscopy, as you are due for this screening. - Be careful on icy surfaces to avoid falling and breaking a bone. - Plan to follow up in one year, or call us sooner if any new problems come up. Orders: Referrals Cologuard Test Z12.11 - Encounter for screening for malignant neoplasm of colon Medications: New magnesium glycinate 200 mg (2 x 100 mg magnesium) PO .QD 60 caps 0RF Z12.11 - Encounter for screening for malignant neoplasm of colon
[2025-05-11 09:01] VITALS: BP 146/74; PULSE 66; RESP 18; TEMP 36.5; O2SAT 93; BMI 22.5
--- OUTSIDE RECORDS SUMMARY | 2025-05-11 09:32 | XMS_ITS | Patient Health Record ---
Author Organization [facility] Amber caitlyn Scott Address [address] [place] [address] Care Team Providers Care Marketing Assistant Manager Name Role Phone LeobardoYasmindennise Primary Care Provider Shanice Cohn Unavailable [phone] Allergies Allergen (clinical drug ingredient) Drug/Non Drug [...] Problem Acquired hammer toe of left foot ([id number]) Other hammer toe(s) (acquired), left foot (M20.42) Active confirmed Problem Localized, primary osteoarthritis of the ankle and/or foot ([id number]) Arthritis of joint of lesser toe, left (M19.072) Active confirmed Plan Of Treatment No Information Insurance Providers Payer Name Payer Address Payer Phone Subscriber Number Group Number Insured Name Patient Relationship to Insured Coverage Start Date Coverage End Date [employer] [place] [employer] [address] [place] [address] [id number] Chel Wan Self - patient is the insured 3 Medical (General) History Medical History History ICD Code Broken bones Gall bladder problems thyroid Measles Mumps Chicken pox Surgical History Surgery Date(Month/Year) hysterectomy 1980 Gall bladder removal 1998 Hand Surgery 2009 Broken Leg 2014 Lipoma removal 12/21/23
== END 2025-05-11 09:53 | disposition home or self-care (01) ==
LOC: HO.HMCH 08:52
PROVIDERS: PCP Internal Medicine; Visit Provider Internal Medicine
DX: Z00.00 Encounter for general adult medical examination without abnormal findings (principal); S83.242A Other tear of medial meniscus, current injury, left knee, initial encounter; M81.0 Age-related osteoporosis without current pathological fracture; E03.9 Hypothyroidism, unspecified; E78.00 Pure hypercholesterolemia, unspecified; Z12.11 Encounter for screening for malignant neoplasm of colon

== ENCOUNTER → 2025-05-11 08:51 | Outpatient (BNVA) | payer MEDICARE, SELFPAY | PROVIDERS: PCP Internal Medicine; Visit Provider Internal Medicine | DX: Z00.00 Encounter for general adult medical examination without abnormal findings (principal); E03.9 Hypothyroidism, unspecified; E78.00 Pure hypercholesterolemia, unspecified; M81.0 Age-related osteoporosis without current pathological fracture; S83.242A Other tear of medial meniscus, current injury, left knee, initial encounter; X58.XXXA Exposure to other specified factors, initial encounter; Y93.9 Activity, unspecified; Y92.9 Unspecified place or not applicable; Y99.9 Unspecified external cause status | CPT/HCPCS: 96127; 99397 ==